=== PATIENT | female | born 1970 | race Caucasian/White ===

== ENCOUNTER 2023-03-20 08:15 | Outpatient (OUT) | payer OTHER, SELFPAY ==
--- NOTE | 2023-03-20 08:29 | MM_ITS ---
Patient: PINKY FUNEZ Exam Date: 03/20/2023 : 1970 Gender:F Ordering : DR ANGEL REVELES D.O. Admission #: [id number] Family : Order #: [id number] CLICK HERE TO VIEW EXAM RADIOLOGY REPORT PROCEDURE: MM TOMOSYNTHESIS SCREENING BI COMPARISON: MG MAMM SCREEN 3D [place] CAD, 05/23/2021. MG MAMM VIKTORIA SCRN W CAD DIG, 07/13/2013. INDICATIONS: Screening Calculator Name NCI Breast Cancer Risk Assessment Tool 5 Year Breast Cancer Risk 0.80% Lifetime Breast Cancer Risk 7.40% Personal Breast Cancer No Personal Ovarian Cancer No Treatments None Family Cancers Grandmother-maternal with uterine cancer at age 86. LOCATION: [facility] BREAST COMPOSITION: Extremely dense, which lowers the sensitivity of mammography. FINDINGS: DIAGNOSTIC CATEGORY 1--NEGATIVE. RIGHT BREAST: No significant suspicious finding. No significant change has occurred. LEFT BREAST: No significant suspicious finding. No significant change has occurred. RECOMMENDATIONS: ROUTINE MAMMOGRAM AND CLINICAL EVALUATION IN 12 MONTHS. PLEASE NOTE: A NORMAL MAMMOGRAM DOES NOT EXCLUDE THE POSSIBILITY OF BREAST CANCER. A CLINICALLY SUSPICIOUS PALPABLE LUMP SHOULD BE BIOPSIED. Dictated by: Neil Piña M.D. on 03/21/2023 at 12:56 Approved by: Neil Piña M.D. on 03/21/2023 at 12:59
[2023-03-20 08:36] LABS: Basophils Absolute Auto 0.1 10^3/uL (0.0-0.1); Basophils Percent Auto 1.3 % (0.2-2.0); Eosinophils Absolute Auto 0.3 10^3/uL (0.0-0.7); Eosinophils Percent Auto 4.4 % (0.9-7.0); Hematocrit 44.6 % (36.0-48.0); Hemoglobin 14.2 g/dL (12.0-16.0); Immature Granulocytes Abs Auto 0.02 10^3/uL (0.00-0.03); Immature Granulocytes Pct Auto 0.3 % (0.0-0.5); Lymphocytes Percent Auto 28.7 % (20.5-60.0); Mean Corpuscular HGB Conc 31.8 g/dL (29.9-35.2); Mean Corpuscular Hemoglobin 28.2 pg (26.7-34.0); Mean Corpuscular Volume 88.7 fL (81.0-99.0); Mean Platelet Volume 10.9 fL (9.5-13.5); Monocytes Absolute Auto 0.5 10^3/uL (0.3-0.8); Monocytes Percent Auto 6.9 % (1.7-12.0); Neutrophils Absolute Auto 4.2 10^3/uL (1.4-6.5); Neutrophils Percent Auto 58.4 % (43.0-75.0); Platelet Count 239 10^3/uL (150-450); Red Blood Count 5.03 10^6/uL (4.20-5.40); Red Cell Distribution Width 12.6 % (11.0-15.0); White Blood Count 7.1 10^3/uL (4.0-11.0)
[2023-03-20 10:42] LABS: Alanine Aminotransferase 18 U/L (14-59); Albumin Level 3.6 g/dL (3.4-5.0); Alkaline Phosphatase 82 U/L (46-116); Anion Gap 8.9; Aspartate Amino Transferase 12 U/L (15-37); BUN Creatinine Ratio 19.1; Bilirubin Total 0.4 mg/dL (0.2-1.0); Carbon Dioxide 30.2 mmol/L (21.0-32.0); Chloride 106 mmol/L (98-107); Cholesterol 194 mg/dL (<=200); Estimated GFR (African America >60 (>=60); Estimated GFR (Non-African Ame >60 (>=60); Globulin 3.5 g/dL; Glucose 98 mg/dL (74-106); HDL Cholesterol 64 mg/dL (40-60); Potassium 4.1 mmol/L (3.5-5.1); Sodium 141 mmol/L (136-145); Total Protein 7.1 g/dL (6.4-8.2); Triglycerides 64 mg/dL (<=150); VLDL CHOLESTEROL 12.8 mg/dL
== END 2023-03-20 08:16 | disposition home or self-care (01) ==
LOC: LAB 08:15
PROVIDERS: PCP Family Medicine; Visit Provider Family Medicine
DX: Z00.00 Encounter for general adult medical examination without abnormal findings (principal); Z12.31 Encounter for screening mammogram for malignant neoplasm of breast; Z80.8 Family history of malignant neoplasm of other organs or systems
CPT/HCPCS: 36415; 77063; 77067; 80053; 80061; 85025

== ENCOUNTER 2023-05-26 13:24 | Emergency (ER) | payer OTHER, SELFPAY ==
[2023-05-26 13:30] VITALS: BP 150/101; PULSE 87; RESP 16; TEMP 36.9; O2SAT 99; BMI 31.6
--- NOTE | 2023-05-26 13:59 | CT_ITS ---
The [address] [address] Patient Name: PINKY FUNEZ MRN: [id number] date: 1970 Sex: F Assigned Patient Location: ER Current Patient Location: Accession/Order Number: [id number] Exam Date: 05/26/2023 14:20 Report Date: 05/26/2023 14:49 At the request of: IVELISSE BARRAGAN Procedure: CT abdomen pelvis w con EXAM: CT scan of the abdomen and pelvis using 99 mL of IV iodinated contrast. Dose reduction technique used: Automated exposure control and/or adjustment of the mA and/or kV according to patient size and/or use of iterative reconstruction technique. REASON FOR EXAM: Abdominal pain, rectal bleeding COMPARISON: None FINDINGS: Wall thickening throughout the transverse and descending colon, most prominently in the distal transverse colon with pericolonic fat stranding. Patent superior mesenteric, celiac arteries and superior mesenteric vein. Hypoenhancing 2.3 x 2.0 cm left hepatic segment 4A lesion. Hysterectomy. Normal appendix. No free fluid in the abdomen or pelvis. No free intraperitoneal air. No dilated or thickened loops of small bowel or colon. No hydronephrosis or obstructing renal or ureteral calculi. Liver, pancreas, spleen, bilateral kidneys, and bilateral adrenal glands are otherwise unremarkable. No lymphadenopathy in the abdomen or pelvis. Remainder unremarkable. CT/CT abdomen pelvis w con IMPRESSION: 1. Findings compatible with colitis. 2. No enhancing hepatic lesion. This is indeterminate and in the setting of colitis a hepatic abscess is a consideration. Correlate with any prior outside imaging or consider further evaluation with ultrasound and/or MRI. Electronically authenticated by: CROW CALDERÓN Date: 05/26/2023 14:49
--- NOTE | 2023-05-26 14:12 | ED_ITS ---
HPI - GI Bleed General Chief complaint: GI Bleed Stated complaint: BLOOD IN STOOL, DIARHEA Time Seen by Provider: 05/26/23 13:58 Source: patient Mode of arrival: walk-in Limitations: no limitations History of Present Illness HPI Narrative: patient is a 52-year-old female presents the emergency department for lower abdominal discomfort and bright red rectal bleeding that began yesterday. She states she has a history of chronic abnormal bowel movements. She states she started having cramping in the low abdomen last night and noticed bright red bleeding with her bowel movements. She does not take blood thinners. She has had no fevers or vomiting. She denies any urinary symptoms. She is scheduled to have a colonoscopy this Friday. no medications prior to arrival Related Data Previous Rx's Medication Instructions Recorded ciprofloxacin HCl 500 mg tablet 500 mg PO Q12H #20 tabs 05/26/23 dicyclomine 20 mg tablet 20 mg PO QID PRN abdominal pain 05/26/23 #12 tabs metronidazole 500 mg tablet 500 mg PO Q12H 10 days #20 tabs 05/26/23 ondansetron 4 mg disintegrating 4 mg PO Q6H PRN nausea and 05/26/23 tablet vomiting #12 tabs Allergies Allergy/AdvReac Type Severity Reaction Status Date / Time Penicillins Allergy Severe Verified 05/26/23 13:30 Sulfa (Sulfonamide Allergy Severe Verified 05/26/23 13:30 Antibiotics) Review of Systems ROS Constitutional Denies: fever or chills Ears, nose, mouth, and throat Denies: throat pain Cardiovascular Denies: chest pain Respiratory Denies: shortness of breath or cough Gastrointestinal Reports: abdominal pain and blood in stool; Denies: nausea or vomiting Genitourinary Denies: painful urination Musculoskeletal Denies: back pain Integumentary/Breast Denies: rash Neurological Denies: headache PFSH PFSH Social History Smoking status: Never smoker Exam Narrative Exam Narrative: Gen.: Awake, alert, in no distress Head: Normocephalic, atraumatic ENT: Moist mucous membranes Respiratory: No respiratory distress Gastrointestinal: Abdomen is soft, nondistended and nontender to palpation Extremities: Moves extremities equally Psych: Normal mood and affect Neuro: No focal neuro deficit Skin: Warm, dry, intact Constitutional Vital Signs, click to edit/add: Last Vital Signs Temp 98.4 F 05/26/23 13:30 Pulse 87 05/26/23 13:30 Resp 16 05/26/23 13:30 BP 150/101 H 05/26/23 13:30 Pulse Ox 99 05/26/23 13:30 O2 Del Method Room Air 05/26/23 13:30 Course Vital Signs Vital signs: Vital Signs Temperature 98.4 F 05/26/23 13:30 Pulse Rate 87 05/26/23 13:30 Respiratory Rate 16 05/26/23 13:30 Blood Pressure 150/101 H 05/26/23 13:30 Pulse Oximetry 99 05/26/23 13:30 Oxygen Delivery Method Room Air 05/26/23 13:30 Temperature 98.4 F 05/26/23 13:30 Pulse Rate 87 05/26/23 13:30 Respiratory Rate 16 05/26/23 13:30 Blood Pressure 150/101 H 05/26/23 13:30 Pulse Oximetry 99 05/26/23 13:30 Oxygen Delivery Method Room Air 05/26/23 13:30 MDM - GI Bleed MDM Narrative Medical decision making narrative: patient declining the need for any pain medication or nausea medication in the Emergency Room. Labs studies show minimal leukocytosis with no bandemia and stable lactic acid. She has a normal hemoglobin. The remainder of her labs are unremarkable and she was sent for CT of the abdomen and pelvis with IV contrast showing any was compatible with colitis. Radiologist also notes a 2 cm nonspecific lesion in the liver, which the radiologist notes could potentially be a liver abscess in the setting of colitis. Patient has no right upper quadrant tenderness. She has had no fevers or vomiting. I discussed the case with Dr. Meza for general surgery. He is in agreement that at this time that the patient can be treated for colitis and reimaged with her general surgeon as she is supposed to have a colonoscopy on Friday, they will likely postpone the procedure, they can reimage the liver lesion. Patient will be started on Cipro, Flagyl, Bentyl, Zofran. She is encouraged to follow clear liquid diet for forty- eight hours and follow-up with the general surgeon in [place] that she is scheduled to see. Return to the Emergency Room if symptoms change or worsen. Patient was reevaluated by attending physician prior to discharge and she was made aware of her CT results and the need for reimaging with either her primary care provider or her general surgeon. She verbalizes understanding. Medical Records Attestation: I reviewed the patient's medical records. Lab Data Attestation: I reviewed the patient's lab results. Labs: Lab Results 05/26/23 Range/Units 14:15 WBC 13.3 H (4.0-11.0) 10^3/uL RBC 5.17 (4.20-5.40) 10^6/uL Hgb 14.9 (12.0-16.0) g/dL Hct 45.8 (36.0-48.0) % MCV 88.6 (81.0-99.0) fL MCH 28.8 (26.7-34.0) pg MCHC 32.5 (29.9-35.2) g/dL RDW 12.9 (11.0-15.0) % Plt Count 271 (150-450) 10^3/uL MPV 10.7 (9.5-13.5) fL Neut % (Auto) 72.3 (43.0-75.0) % Lymph % (Auto) 19.2 L (20.5-60.0) % [place] % (Auto) 6.3 (1.7-12.0) % Eos % (Auto) 1.0 (0.9-7.0) % Baso % (Auto) 0.8 (0.2-2.0) % Neut # (Auto) 9.6 H (1.4-6.5) 10^3/uL Lymph # (Auto) 2.6 (1.2-3.8) 10^3/uL [place] # (Auto) 0.8 (0.3-0.8) 10^3/uL Eos # (Auto) 0.1 (0.0-0.7) 10^3/uL Baso # (Auto) 0.1 (0.0-0.1) 10^3/uL Abs Immat Gran (auto) 0.05 H (0.00-0.03) 10^3/uL Imm/Tot Granulo (auto) 0.4 (0.0-0.5) % PT 9.8 (9.0-11.6) sec INR <0.93 Sodium 140 (136-145) mmol/L Potassium 3.5 (3.5-5.1) mmol/L Chloride 103 (98-107) mmol/L Carbon Dioxide 28.4 (21.0-32.0) mmol/L Anion Gap 12.1 BUN 10.0 (7.0-18.0) mg/dL Creatinine 0.90 (0.55-1.02) mg/dL Est GFR ( Amer) >60 (>=60) Est GFR (Non-Af Amer) >60 (>=60) BUN/Creatinine Ratio 11.1 Glucose 94 (74-106) mg/dL Lactate 0.6 (0.4-2.0) mmol/L Calcium 8.8 (8.5-10.1) mg/dL Total Bilirubin 0.4 (0.2-1.0) mg/dL AST 17 (15-37) U/L ALT 42 (14-59) U/L Alkaline Phosphatase 92 (46-116) U/L Total Protein 7.0 (6.4-8.2) g/dL Albumin 3.4 (3.4-5.0) g/dL Globulin 3.6 g/dL Albumin/Globulin Ratio 0.[address] scan - abdomen: Attestation: I have reviewed the pertinent imaging results. Radiologist's impression: Procedure: CT abdomen pelvis w con EXAM: CT scan of the abdomen and pelvis using 99 mL of IV iodinated contrast. Dose reduction technique used: Automated exposure control and/or adjustment of the mA and/or kV according to patient size and/or use of iterative reconstruction technique. REASON FOR EXAM: Abdominal pain, rectal bleeding COMPARISON: None FINDINGS: Wall thickening throughout the transverse and descending colon, most prominently in the distal transverse colon with pericolonic fat stranding. Patent superior mesenteric, celiac arteries and superior mesenteric vein. Hypoenhancing 2.3 x 2.0 cm left hepatic segment 4A lesion. Hysterectomy. Normal appendix. No free fluid in the abdomen or pelvis. No free intraperitoneal air. No dilated or thickened loops of small bowel or colon. No hydronephrosis or obstructing renal or ureteral calculi. Liver, pancreas, spleen, bilateral kidneys, and bilateral adrenal glands are otherwise unremarkable. No lymphadenopathy in the abdomen or pelvis. Remainder unremarkable. IMPRESSION: 1. Findings compatible with colitis. 2. No enhancing hepatic lesion. This is indeterminate and in the setting of colitis a hepatic abscess is a consideration. Correlate with any prior outside imaging or consider further evaluation with ultrasound and/or MRI. Electronically authenticated by: CROW CALDERÓN Date: 05/26/2023 14:49 Discharge Plan Discharge Chief Complaint: GI Bleed Clinical Impression: Colitis, Rectal bleeding, Abdominal pain Patient Disposition: Home, Self-Care Time of Disposition Decision: 15:23 Condition: Good Prescriptions / Home Meds: New ciprofloxacin HCl 500 mg tablet 500 mg PO Q12H Qty: 20 0RF metronidazole 500 mg tablet 500 mg PO Q12H 10 Days Qty: 20 0RF dicyclomine 20 mg tablet 20 mg PO QID PRN (Reason: abdominal pain) Qty: 12 0RF ondansetron 4 mg tablet,disintegrating 4 mg PO Q6H PRN (Reason: nausea and vomiting) Qty: 12 0RF Instructions: Rectal Bleeding (ED), Abdominal Pain (ED), Colitis (ED) Additional Instructions: Follow up with your surgeon as scheduled Stand Alone Forms: Portal Instructions Referrals: ANGEL REVELES [Primary Care Provider] - 1 week
[2023-05-26 14:30] LABS: Basophils Absolute Auto 0.1 10^3/uL (0.0-0.1); Basophils Percent Auto 0.8 % (0.2-2.0); Eosinophils Absolute Auto 0.1 10^3/uL (0.0-0.7); Hematocrit 45.8 % (36.0-48.0); Hemoglobin 14.9 g/dL (12.0-16.0); Immature Granulocytes Abs Auto 0.05 10^3/uL (0.00-0.03); Immature Granulocytes Pct Auto 0.4 % (0.0-0.5); Lymphocytes Absolute Auto 2.6 10^3/uL (1.2-3.8); Lymphocytes Percent Auto 19.2 % (20.5-60.0); Mean Corpuscular HGB Conc 32.5 g/dL (29.9-35.2); Mean Corpuscular Hemoglobin 28.8 pg (26.7-34.0); Mean Corpuscular Volume 88.6 fL (81.0-99.0); Mean Platelet Volume 10.7 fL (9.5-13.5); Monocytes Absolute Auto 0.8 10^3/uL (0.3-0.8); Monocytes Percent Auto 6.3 % (1.7-12.0); Neutrophils Absolute Auto 9.6 10^3/uL (1.4-6.5); Neutrophils Percent Auto 72.3 % (43.0-75.0); Platelet Count 271 10^3/uL (150-450); Red Blood Count 5.17 10^6/uL (4.20-5.40); Red Cell Distribution Width 12.9 % (11.0-15.0); White Blood Count 13.3 10^3/uL (4.0-11.0)
[2023-05-26 14:44] LABS: Alanine Aminotransferase 42 U/L (14-59); Albumin Globulin Ratio 0.9; Albumin Level 3.4 g/dL (3.4-5.0); Alkaline Phosphatase 92 U/L (46-116); Anion Gap 12.1; Aspartate Amino Transferase 17 U/L (15-37); BUN Creatinine Ratio 11.1; Bilirubin Total 0.4 mg/dL (0.2-1.0); Calcium 8.8 mg/dL (8.5-10.1); Carbon Dioxide 28.4 mmol/L (21.0-32.0); Chloride 103 mmol/L (98-107); Estimated GFR (African America >60 (>=60); Estimated GFR (Non-African Ame >60 (>=60); Globulin 3.6 g/dL; Glucose 94 mg/dL (74-106); Potassium 3.5 mmol/L (3.5-5.1); Sodium 140 mmol/L (136-145)
[2023-05-26 14:46] LABS: Prothrombin Time 9.8 sec (9.0-11.6)
[2023-05-26 14:47] LABS: INR <0.93
[2023-05-26 14:48] LABS: Lactate/Lactic Acid 0.6 mmol/L (0.4-2.0)
[2023-05-26] MEDS: 0.9 % SODIUM CHLORIDE 1,000 ML 999 ML IV (14:56)
== END 2023-05-26 15:34 | disposition home or self-care (01) ==
PROVIDERS: Physician Assistant; Emergency Provider Emergency Medicine; PCP Family Medicine
DX: K52.9 Noninfective gastroenteritis and colitis, unspecified (principal); K62.5 Hemorrhage of anus and rectum; R10.9 Unspecified abdominal pain; K76.9 Liver disease, unspecified
CPT/HCPCS: 36415; 74177; 80053; 83605; 85025; 85610; 99285; Q9967

== ENCOUNTER 2023-10-22 22:50 | Emergency (ER) | payer OTHER, SELFPAY ==
[2023-10-22 22:57] VITALS: BP 152/99; PULSE 85; RESP 18; TEMP 36.4; O2SAT 96; BMI 29.1
--- NOTE | 2023-10-22 23:25 | ED.ABDPAIN1 ---
HPI - Abdominal Pain General Chief Complaint: Abdominal Pain Stated Complaint: Rectal Bleeding Time Seen by Provider: 10/22/23 23:07 Source: patient Mode of arrival: walk-in Limitations: no limitations History of Present Illness HPI narrative: This 52-year-old female with a history of colitis resents for evaluation of abdominal cramping with passage of bloody stool starting after work today. The patient was seen in this department in May and diagnosed with colitis. She states she is having exactly the same symptoms that she was having then. She states that after school work today she had blowout since that time she has had 6 or 7 episodes of dark gelatinous bloody stool with abdominal cramps and chills. She is nauseated but has not vomited. She denies any chest pain or shortness of breath. She did have a colonoscopy in July at [facility] that was essentially normal with a benign polyp and she was told that she could have another colonoscopy in 10 years. She did take a dose of Zofran prior to coming to the hospital that she had left over without significant improvement in her nausea. Related Data Home Medications Medication Instructions Recorded Confirmed levothyroxine 112 mcg tablet 112 mcg PO DAILY 10/22/23 10/22/23 Previous Rx's Medication Instructions Recorded ondansetron 4 mg disintegrating 4 mg PO Q6H PRN nausea and 05/26/23 tablet vomiting #12 tabs Allergies Allergy/AdvReac Type Severity Reaction Status Date / Time Penicillins Allergy Severe Verified 10/22/23 23:03 Sulfa (Sulfonamide Allergy Severe Verified 10/22/23 23:03 Antibiotics) Review of Systems ROS Status of ROS 10 or more systems reviewed and unremarkable except as noted in history and below PFSH PFS Social History Smoking status: Never smoker Exam Narrative Exam Narrative: Nurses note and vital signs reviewed and patient is not hypoxic. General: Alert, nontoxic but uncomfortable appearing female, she prefers to sit in a chair then to light down in the bed due to abdominal discomfort, no respiratory distress, no active vomiting Skin: Warm, dry, no pallor noted. There is no rash noted. Head: Normocephalic, atraumatic Eye: Normal conjunctiva, no drainage, EOMI. PERRL Ears, Nose, Mouth, and Throat: oral mucosa is moist. Nares patent. Mouth without vesicles. Cardiovascular: Regular Rate and Rhythm1 and S2, pulses are brisk and equal bilaterally Respiratory: Patient is in no distress, no accessory muscle use, lungs are clear to auscultation, no wheezing, rales or rhonchi Back: non-tender, no CVA tenderness bilaterally to percussion. 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 Musculoskeletal: The patient has no evidence of calf tenderness, no pitting edema, symmetrical pulses noted bilaterally Neurological: A&O x4, normal speech Psychiatric: Cooperative Constitutional Vital Signs, click to edit/add: Last Vital Signs Temp 97.5 F L 10/22/23 22:57 Pulse 82 10/23/23 02:09 Resp 16 10/23/23 02:09 BP 135/68 10/23/23 02:09 Pulse Ox 99 10/23/23 02:09 O2 Del Method Room Air 10/23/23 02:09 Course Vital Signs Vital signs: Vital Signs Temperature 97.5 F L 10/22/23 22:57 Pulse Rate 85 10/22/23 22:57 Respiratory Rate 18 10/22/23 22:57 Blood Pressure 152/99 H 10/22/23 22:57 Pulse Oximetry 96 10/22/23 22:57 Oxygen Delivery Method Room Air 10/22/23 22:57 Temperature 97.5 F L 10/22/23 22:57 Pulse Rate 82 10/23/23 02:09 Respiratory Rate 16 10/23/23 02:09 Blood Pressure 135/68 10/23/23 02:09 Pulse Oximetry 99 10/23/23 02:09 Oxygen Delivery Method Room Air 10/23/23 02:09 MDM - Abdominal Pain MDM Narrative Medical decision making narrative: 8-year-old female who was diagnosed with colitis last fall and had bloody diarrhea at that time presents for evaluation of recurrent abdominal pain with nausea and passage of mucousy and bloody stool. She had some chills earlier in the evening. She did have a colonoscopy after her diagnosis of colitis last fall. The colonoscopy was unremarkable with the exception of a benign polyp. Vital signs are stable. Her abdomen was diffusely tender. Rectal exam was positive for mucus and trace blood. There was no masses or hemorrhoids appreciated. An IV was placed and she was medicated with IV fluids, Zofran, Bentyl and morphine. Routine labs are reviewed. She has a white count of 15. She has a normal hemoglobin. Electrolytes are normal. Lactic acid is normal. CT scan of the abdomen and pelvis which is included in the body is report shows wall thickening of the splenic flexure and descending colon concerning for colitis. She was medicated with IV Cipro and Flagyl in the emergency department and will be discharged home with prescription for Cipro, Flagyl, Bentyl, Zofran and analgesics. 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 Medical Records Medical records narrative: [place] [address] CT Scan Report Signed Patient: PINKY FUNEZ MR#: [id number] : 1970 Acct:[id number] Age/Sex: 52 / F ADM Date: 10/22/23 Loc: ER Attending Dr: Ordering Physician: Josseline Frank Date of Service: 10/22/23 Procedure(s): CT abdomen pelvis w con Accession Number(s): [id number] cc: ANGEL REVELES [facility] [place] [id number] Patient Name: PINKY FUNEZ MRN: [id number] date: 1970 Sex: F Assigned Patient Location: ER Current Patient Location: ER Accession/Order Number: [id number] Exam Date: 10/22/2023 23:55 Report Date: 10/23/2023 00:32 At the request of: JOSSELINE FRANK Procedure: CT abdomen pelvis w con EXAM: CT abdomen pelvis w con HISTORY: GI bleeding COMPARISON: 05/26/2023 TECHNIQUE: CT of the abdomen and pelvis with intravenous contrast. Dose reduction techniques were achieved by using automated exposure control and/or adjustment of mA and/or kV according to patient size and/or use of iterative reconstruction technique. FINDINGS: TUBES AND IMPLANTS: None. LOWER CHEST: Unremarkable ABDOMEN and PELVIS ABDOMINAL WALL AND SOFT TISSUES: Unremarkable. BONES: No suspicious lesions. Multilevel degenerative changes of the spine. ARTERIES: No aortoiliac aneurysm VEINS: Unremarkable. LYMPH NODES: Unremarkable. PERITONEUM/ RETROPERITONEUM: Unremarkable. BOWEL: No obstruction. There is wall thickening of the splenic flexure and descending colon with surrounding mild inflammatory changes APPENDIX: Not identified. LIVER: There is a 1.5 centimeter hypodense lesion with central hyperdensity at the junction of the right and left lobes, suggestive of a hemangioma. GALLBLADDER: Unremarkable. BILE DUCTS: Not dilated SPLEEN: Unremarkable. PANCREAS: Unremarkable. ADRENALS: Unremarkable. KIDNEYS/ URETERS: Unremarkable. REPRODUCTIVE ORGANS: Uterus is surgically absent. Bilateral ovaries appear grossly unremarkable URINARY BLADDER: Mildly filled CT/CT abdomen pelvis w con IMPRESSION: Wall thickening of the splenic flexure and descending colon concerning for colitis. This may represent infectious or inflammatory etiology with ischemic etiology considered less likely. Electronically authenticated by: YARIEL PETERSEN Date: 10/23/2023 00:32 Lab Data Labs: Lab Results 10/22/23 Range/Units 23:30 WBC 15.1 H (4.0-11.0) 10^3/uL RBC 5.17 (4.20-5.40) 10^6/uL Hgb 14.9 (12.0-16.0) g/dL Hct 46.1 (36.0-48.0) % MCV 89.2 (81.0-99.0) fL MCH 28.8 (26.7-34.0) pg MCHC 32.3 (29.9-35.2) g/dL RDW 12.2 (11.0-15.0) % Plt Count 258 (150-450) 10^3/uL MPV 10.9 (9.5-13.5) fL Neut % (Auto) 84.2 H (43.0-75.0) % Lymph % (Auto) 10.4 L (20.5-60.0) % [place] % (Auto) 4.4 (1.7-12.0) % Eos % (Auto) 0.3 L (0.9-7.0) % Baso % (Auto) 0.4 (0.2-2.0) % Neut # (Auto) 12.7 H (1.4-6.5) 10^3/uL Lymph # (Auto) 1.6 (1.2-3.8) 10^3/uL [place] # (Auto) 0.7 (0.3-0.8) 10^3/uL Eos # (Auto) 0.1 (0.0-0.7) 10^3/uL Baso # (Auto) 0.1 (0.0-0.1) 10^3/uL Abs Immat Gran (auto) 0.04 H (0.00-0.03) 10^3/uL Imm/Tot Granulo (auto) 0.3 (0.0-0.5) % Sodium 143 (136-145) mmol/L Potassium 4.0 (3.5-5.1) mmol/L Chloride 104 (98-107) mmol/L Carbon Dioxide 28.4 (21.0-32.0) mmol/L Anion Gap 14.6 BUN 16.0 (7.0-18.0) mg/dL Creatinine 0.97 (0.55-1.02) mg/dL Est GFR ( Amer) >60 (>=60) Est GFR (Non-Af Amer) >60 (>=60) BUN/Creatinine Ratio 16.5 Glucose 118 H (74-106) mg/dL Lactate 1.2 (0.4-2.0) mmol/L Calcium 9.1 (8.5-10.1) mg/dL Total Bilirubin 0.4 (0.2-1.0) mg/dL AST 18 (15-37) U/L ALT 27 (14-59) U/L Alkaline Phosphatase 100 (46-116) U/L Total Protein 7.7 (6.4-8.2) g/dL Albumin 3.6 (3.4-5.0) g/dL Globulin 4.1 g/dL Albumin/Globulin Ratio 0.9 Lipase 36.0 (16.0-77.0) U/L Discharge Plan Discharge Chief Complaint: Abdominal Pain Clinical Impression: Colitis, Rectal bleeding Patient Disposition: Home, Self-Care Time of Disposition Decision: 00:51 Condition: Good Prescriptions / Home Meds: No Action levothyroxine 112 mcg tablet 112 mcg PO DAILY ondansetron 4 mg tablet,disintegrating 4 mg PO Q6H PRN (Reason: nausea and vomiting) Qty: 12 0RF Instructions: Gastrointestinal Bleeding (ED), Rectal Bleeding (ED), Colitis (ED) Additional Instructions: Antibiotic: Cipro - twice daily for 10 days Antifungal: Flagyl - twice daily for 10 days Zofran every 6 hours as needed for nausea/vomiting [place] every 4-6 hours as needed for pain Bentyl every 8 hours as needed for abdominal cramping. Stand Alone Forms: Portal Instructions Referrals: ANGEL REVELES [Primary Care Provider] - 1 week Discharge Date/Time: 10/23/23 02:23
[2023-10-22 23:47] LABS: Basophils Absolute Auto 0.1 10^3/uL (0.0-0.1); Basophils Percent Auto 0.4 % (0.2-2.0); Eosinophils Absolute Auto 0.1 10^3/uL (0.0-0.7); Eosinophils Percent Auto 0.3 % (0.9-7.0); Hematocrit 46.1 % (36.0-48.0); Hemoglobin 14.9 g/dL (12.0-16.0); Immature Granulocytes Abs Auto 0.04 10^3/uL (0.00-0.03); Immature Granulocytes Pct Auto 0.3 % (0.0-0.5); Lymphocytes Absolute Auto 1.6 10^3/uL (1.2-3.8); Lymphocytes Percent Auto 10.4 % (20.5-60.0); Mean Corpuscular HGB Conc 32.3 g/dL (29.9-35.2); Mean Corpuscular Hemoglobin 28.8 pg (26.7-34.0); Mean Corpuscular Volume 89.2 fL (81.0-99.0); Mean Platelet Volume 10.9 fL (9.5-13.5); Monocytes Absolute Auto 0.7 10^3/uL (0.3-0.8); Monocytes Percent Auto 4.4 % (1.7-12.0); Neutrophils Absolute Auto 12.7 10^3/uL (1.4-6.5); Neutrophils Percent Auto 84.2 % (43.0-75.0); Platelet Count 258 10^3/uL (150-450); Red Blood Count 5.17 10^6/uL (4.20-5.40); Red Cell Distribution Width 12.2 % (11.0-15.0); White Blood Count 15.1 10^3/uL (4.0-11.0)
[2023-10-22] MEDS: 0.9 % SODIUM CHLORIDE 1,000 ML 1000 ML IV (23:48)
[2023-10-22] MEDS: ONDANSETRON PF 4 MG/2 ML VIAL IV (23:48)
[2023-10-22] MEDS: MORPHINE SULFATE 4 MG/ML VIAL IV (23:48)
[2023-10-22] MEDS: DICYCLOMINE HCL 20 MG/2 ML VIAL IM (23:48)
[2023-10-23 00:02] LABS: Alanine Aminotransferase 27 U/L (14-59); Albumin Globulin Ratio 0.9; Albumin Level 3.6 g/dL (3.4-5.0); Alkaline Phosphatase 100 U/L (46-116); Anion Gap 14.6; Aspartate Amino Transferase 18 U/L (15-37); BUN Creatinine Ratio 16.5; Bilirubin Total 0.4 mg/dL (0.2-1.0); Calcium 9.1 mg/dL (8.5-10.1); Carbon Dioxide 28.4 mmol/L (21.0-32.0); Chloride 104 mmol/L (98-107); Estimated GFR (African America >60 (>=60); Estimated GFR (Non-African Ame >60 (>=60); Globulin 4.1 g/dL; Glucose 118 mg/dL (74-106); Sodium 143 mmol/L (136-145); Total Protein 7.7 g/dL (6.4-8.2)
[2023-10-23 00:05] LABS: Lactate/Lactic Acid 1.2 mmol/L (0.4-2.0)
[2023-10-23] MEDS: CIPROFLOXACIN IN 5 % DEXTROSE 400 MG/200 ML PIGGYBACK 200 MG IV (01:04)
[2023-10-23] MEDS: METRONIDAZOLE 250 MG TABLET 500 MG PO (01:04)
[2023-10-23] MEDS: MORPHINE SULFATE 4 MG/ML VIAL IV (02:06)
[2023-10-23 02:09] VITALS: BP 135/68; PULSE 82; RESP 16; O2SAT 99
[2023-10-23] MEDS: HYDROCODONE/ACET 5-325 MG TABLET 2 TAB PO (02:12)
--- NOTE | 2023-10-23 02:21 | PC.NURSE ---
Discussed discharge paperwork with pt. All questions answered. Script and work note sent home with pt. Pt verbalized understanding to follow up with pcp or return to ER if pain is uncontrolled. Pt ambulated off unit to husbands car in stable condition.
== END 2023-10-23 02:23 | disposition home or self-care (01) ==
PROVIDERS: Emergency Provider Emergency Medicine; PCP Family Medicine
DX: K52.9 Noninfective gastroenteritis and colitis, unspecified (principal); K62.5 Hemorrhage of anus and rectum; Z79.890 Hormone replacement therapy
CPT/HCPCS: 36415; 74177; 80053; 83605; 83690; 85025; 87040; 96365; 96372; 96375; 96376; 99284; J0500; J0744; J2270; J2405; Q9967

== ENCOUNTER 2024-03-23 14:17 | Outpatient (OUT) | payer OTHER, SELFPAY ==
--- NOTE | 2024-03-23 14:21 | MM_ITS ---
Patient Name: PINKY FUNEZ MR#: [id number] : 1970 Exam Date: 03/23/2024 Ordering Doctor: DR ANGEL REVELES D.O. RADIOLOGY REPORT PROCEDURE: MM TOMOSYNTHESIS SCREENING BI COMPARISON: MM TOMOSYNTHESIS SCREENING BI, 03/20/2023. MG MAMM SCREEN 3D VIKTORIA CAD, 05/23/2021. INDICATIONS: Screening Calculator Name NCI Breast Cancer Risk Assessment Tool 5 Year Breast Cancer Risk 0.80% Lifetime Breast Cancer Risk 7.20% Personal Breast Cancer No Personal Ovarian Cancer No Treatments None Family Cancers Grandmother-maternal with uterine cancer at age 86. LOCATION: [facility] BREAST COMPOSITION: The breasts are extremely dense, which lowers the sensitivity of mammography. FINDINGS: DIAGNOSTIC CATEGORY 1--NEGATIVE. NO CHANGE FROM COMPARISON ASSESSMENT. Scattered benign-appearing lymph nodes are present. RIGHT BREAST: No significant suspicious finding. LEFT BREAST: No significant suspicious finding. RECOMMENDATIONS: ROUTINE MAMMOGRAM AND CLINICAL EVALUATION IN 12 MONTHS. PLEASE NOTE: A NORMAL MAMMOGRAM DOES NOT EXCLUDE THE POSSIBILITY OF BREAST CANCER. A CLINICALLY SUSPICIOUS PALPABLE LUMP SHOULD BE BIOPSIED. Dictated by: Cong Marie MD on 03/23/2024 at 15:16 Approved by: Cong Marie MD on 03/23/2024 at 15:17
== END 2024-03-23 14:18 | disposition home or self-care (01) ==
LOC: MAMMO 14:17
PROVIDERS: PCP Family Medicine; Visit Provider Family Medicine
DX: Z12.31 Encounter for screening mammogram for malignant neoplasm of breast (principal); Z80.8 Family history of malignant neoplasm of other organs or systems
CPT/HCPCS: 77063; 77067

== ENCOUNTER 2024-08-07 08:12 | Outpatient (OUT) | payer OTHER, SELFPAY ==
--- OUTSIDE RECORDS SUMMARY | 2024-08-07 08:16 | XMS_ITS | CCD ---
Author Organization [facility] Care Team Providers Care Sliver Cutter Name Role Phone Gregory Matos Admitting Unavailable Gregory Matos Attending Unavailable Gregory Matos Referring Unavailable House, [facility] Primary Care Unavailable Gregory Matos Admitting Unavailable Gregory Matos Attending Unavailable Gregory Matos Referring Unavailable House, [facility] Primary Care Unavailable HOUSE, DR ORTIZ Attending Unavailable HOUSE, DR ORTIZ Consulting Unavailable HOUSE, DR ORTIZ Primary Care Unavailable HOUSE, DR ORTIZ Admitting Unavailable Ana 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 Francse Attending Provider Frances Perez Unavailable Frances Perez Attending Unavailable Frances Perez Admitting Unavailable SELF Referring Unavailable RACIEL MENDIETA Attending Unavailable HOUSE, DO CHACORTA Treviño Attending Unavailable HOUSE, CHACORTA P Primary Care Unavailable HOUSE, CHACORTA P Primary Care Unavailable HOUSE, DO CHACORTA P Attending Unavailable HOUSE, DO CHACORTA P Attending Unavailable HOUSE, CHACORTA P Primary Care Unavailable Allergies Allergy Classification Reported Allergen(s) Allergy Type Date of Onset Reaction(s) Facility (2 sources) Penicillin; Translations: [penicillin] Drug Allergy [facility] Repository (1 source) Sulfamethoxazole; Translations: [sulfamethoxazole ] Drug Allergy [facility] Repository (1 source) Penicillins Drug allergy (disorder) 3 [facility] Repository (1 source) Sulfonamides (Antibiotic) Drug allergy (disorder) 3 [facility] Repository (1 source) Penicillin G Drug Allergy Unknown [facility] Other (1 source) Sulf-10 Drug allergy Unknown [facility] Other (1 source) Penicillin Drug Allergy 3 [facility] Repository (1 source) Sulfonamides (Antibiotic) Drug allergy (disorder) 3 [facility] Repository (1 source) sulfADIAZINE; Translations: [SulfADIAZINE Sodium] Drug Allergy [facility] Repository Medications Current Medications Medication Drug Class(es) Dates Sig (Normalized) Sig (Original) levothyroxine (1 source) l-Thyroxine Synthroid Active probiotic (1 source) probiotic Active Problems Problem Classification Problem Date Documented Da te Episodic/Chronic Other connective tissue disease (1 source) Pain in left hand Episodic Other connective tissue disease (1 source) Ganglion, left wrist Episodic Thyroid disorders (4 sources) Hypothyroidism, unspecified; Translations: [HYPOTHYROIDISM UNSPECIFIED] Onset: 12-31-2022 Chronic Unclassified (1 source) Pain in left hand; Translations: [Pain in left hand] Onset: 08-15-2023 Results Test Name Value Interpretation Reference Range Facility Miscellaneouson 04-28-2024 Miscellaneous [id number]#1.0 [facility] Rad - Other Radiology Report on 03-24-2024 Rad - Other Radiology Report [id number]#1.0 [facility] Outside Recordson 03-15-2024 Outside Records [id number]#1. 00[facility] Lab - Other Lab Resultson Lab - Other Lab Results [id number]#1.0 [facility] Outside Recordson 03-09-2024 Outside Records [id number]#1.0 [facility] Outside Records [id number]#[address] [place] [address] Rad - Other Radiology Report on 03-09-2024 Rad - Other Radiology Report [id number]#1.[address] [place] [address] Progress Note - Nurseon 02-07 Progress Note - Nurse Patient presents in office for weight check after first month of phentermine. Patient weighed in at 197.0 with a weight loss of 13.1 pounds. Patient's vitals were taken with BP reading as 122/78, P 106, O2 99%. Patient tolerated medication well and would like to continue with a second month of phentermine. Prescription was proposed to provider for signature. [Electronically Signed on: 04/06/2024 08:48 EDT] Roselyn Jensen [Verified on: 04/06/2024 08:48 EDT] [facility] Office Visit (GASTMN ) PINKY FUNEZ ([id number]) 1970 F Date Time Provider Department 11/11/23 1:30 PM RACIEL MENDIETA GASTJORJE During your visit today, we recorded the following information about you: Temperature Pulse Blood pressure Weight 97 degrees 81/minute 138/68 88.9 kg Height 1.651 m Diallo Gambino MD, PhD 11/11/2023 4:42 PM Signed [facility] Gastroenterology AND Hepatology 11/11/2023 Pinky Funez 52 year old female Referring physician or PCP: SELF No primary care provider on file. Referred by * to the [facility] for opinion regarding * . My final recommendations will be communicated by way of shared Medical Record for internal providers or letter via the [facility] [employer] for external providers. SUBJECTIVE: HPI: Pinky Funez is a 52 year old female with PMHx hysterectomy who is here for two episodes of colitis. Went to the ED for colitis on two separate occasions. 05/26/2023 10/22/2023 In both incidences. She would have abdominal pain, bloody diarrhea. It starts with gas like pain and then would worsen. Brutal and excruciating pain, twisting in nature that does not stop. Primarily in lower abdomen. Pain is followed by explosive watery diarrhea. Pain would continue and then would have red blood, jelly like material for several days. The first time did not need pain meds. Sent on PO Abx (ciprofloxacin) The second time was more severe and had to have IV pain meds and IV Abx and then sent on cipro and flagyl, zofran, norco, bentyl Power chills but no fever and was sweating One correlation she observed, having a Donut from specific bakery. Modusly. Other people shared same Donuts but no one got sick At baseline, she would go for a BM every 3 days, hard stool, no straining. She takes fibers PRN. No concern for dehydration the days before episodes. No family history of colon cancer or IBD Occasional naproxen for headache. From Care everywhere - [facility] 07/18/2023: Findings: A 5 mm polyp was found in the hepatic flexure. The polyp was pedunculated. The polyp was removed with a hot snare. Resection and retrieval were complete. Estimated blood loss was minimal. The exam was otherwise without abnormality. Estimated Blood Loss: Estimated blood loss was minimal. Impression: - One 5 mm polyp at the hepatic flexure, removed with a hot snare. Resected and retrieved. - The examination was otherwise normal. Recommendation: - Await pathology results. Procedure Code(s): --- Professional --- 75751, Colonoscopy, flexible; with removal of tumor(s), polyp(s), or other lesion(s) by snare technique Patient Name:PINKY FUNEZ:1970 (Age: 52)Gender:FTaken:07/18Reported:07/28/20 23Physician(s):Jefferson Peterson MD ([phone])Copy To: Rec. #:[id number]: #[id number] Final Pathologic Diagnosis Hepatic flexure polyp: Hyperplastic polyp fragments Report Electronically Signed Out nsk/07/28/2023Leonela Aly MD Interpretation performed at [facility], [facility], [place] [address], License number: [id number]. Clinical History Screening. Gross Description Received in formalin labeled SAMPSEL, hepatic flexure polyp is a single pedunculated li to reddish-brown polypoid fragment of soft tissue, 0.7 x 0.3 x 0.2 cm. The polyp is inked teal at the probable surgical margin and submitted intact in cassette A. Also received in the container are 3 li strips of soft tissue, ranging from 0.6-1.0 cm in greatest dimension, which are filtered and submitted in cassette B. (2, ns, [id number], m5) [facility] [place]/07/18/2023R Specimen(s) Received Hepatic flexure polyp Fee Codes(s): 1; 96650 Review Of Systems A 14 point ROS is negative except as outlined above. No past medical history on file. No past surgical history on file. Social History Tobacco Use Smoking status: Never Passive exposure: Never Smokeless tobacco: Never Substance Use Topics Alcohol use: Never Drug use: Never levothyroxine (SYNTHROID) 112 mcg tablet Take 1 tablet by mouth every afternoon. ciprofloxacin HCl (CIPRO) 500 mg tablet Take 1 tablet by mouth every 12 hours. (Patient not taking: Reported on 11/11/2023) dicyclomine (BENTYL) 20 mg tablet TAKE 1 TABLET BY MOUTH EVERY 8 HOURS NEEDED FOR ABDOMINAL CRAMPS (Patient not taking: Reported on 11/11/2023) HYDROcodone-acetaminop hen (NORCO) 5-325 mg per tablet Take 1 tablet by mouth. (Patient not taking: Reported on 11/11/2023) metroNIDAZOLE (FLAGYL) 500 mg tablet Take 1 tablet by mouth every 12 hours. (Patient not taking: Reported on 11/11/2023) ondansetron (ZOFRAN) 4 mg tablet Take 4 mg by mouth every 6 hours as needed. (Patient not taking: Reported on 11/11/2023) busPIRone (BUSPAR) 10 mg tablet Take 10 mg by mouth. (Patient not takin (more content not included)... Normal [facility] Outside Recordson 10-27-2023 Outside Records [id number]#1 .00OTGTIFF [facility] XR hand LT min 3V*on 023 XR hand LT min 3V* [facility] [address] [place] [address] XRay Report Signed Patient: Pinky Funez MR#: [id number] : 1970 Acct:[id number] Age/Sex: 52 / F ADM Date: 08/15/23 [facility]: Type: [facility] Attending Dr: Frances LOMELI Copies to: YANI Bobo Ordering Provider: YANI Bobo Date of Service: 08/15/23 XR/XR hand LT min 3V*: LEFT HAND PAIN LEFT HAND - 3 views REASON FOR EXAM: Left hand injury now with pain and lump over third metacarpal area COMPARISON: None FINDINGS: No focal soft tissue abnormality. No acute bony process is seen. No bony erosions are noted. No significant degenerative change. XR/XR hand LT min 3V* IMPRESSION: NO ACUTE BONY PROCESS. Impression dictated by: Reagan Bañuelos Jr., D.O.08/15/2023 2:48 PM Dictation Location: [place] [address] Transcribed By: [facility] 08/15/23 1448 Dictated By: Reagan Bañuelos Jr, DO 08/15/23 1444 Signed By: 08/15/[address] [facility] XR hand LT min 3V* [facility] Other XR hand LT min 3V* [facility] Other XR hand LT min 3V* [address] [place] [address] [facility] Other XR hand LT min 3V* [place] [address] [facility] Other XR hand LT min 3V* XRay Report [facility] Other XR hand LT min 3V* Signed [facility] Other XR hand LT min 3V* Patient: Pinky Fnuez MR#: [id number] [facility] Other XR hand LT min 3V* 014 [facility] Other XR hand LT min 3V* : 1970 Acct:[id number] [facility] Other XR hand LT min 3V* Age/Sex: 52 / F ADM Date: 08/15/23 [facility] Other XR hand LT min 3V* Loc: [facility] Room: Type: [facility] Other XR hand LT min 3V* Attending Dr: Frances LOMELI [facility] Other XR hand LT min 3V* Copies to: YANI Bobo [facility] Other XR hand LT min 3V* Ordering Provider: YANI Bobo [facility] Other XR hand LT min 3V* Date of Service: 08/15/23 [facility] Other XR hand LT min 3V* XR/XR hand LT min 3V*: LEFT HAND PAIN [facility] Other XR hand LT min 3V* LEFT HAND - 3 views [facility] Other XR hand LT min 3V* REASON FOR EXAM: Lef t hand injury now with pain and lump over third metacarpal area [facility] Other XR hand LT min 3V* COMPARISON: None [facility] Other XR hand LT min 3V* FINDINGS: [facility] Other XR hand LT min 3V* No focal soft tissue abnormality. No acute bony process is seen. No bony erosions are noted. No [facility] Other XR hand LT min 3V* significant degenerative change. [facility] Other XR hand LT min 3V* XR/XR hand LT min 3V* [facility] Other XR hand LT min 3V* IMPRESSION: [facility] Other XR hand LT min 3V* NO ACUTE BONY PROCESS. [facility] Other XR hand LT min 3V* Impression dictated by: Reagan Bañuelos Jr., D.O.08/15/2023 2:48 PM [facility] Other XR hand LT min 3V* Dictation Location: [facility]IO-PC-15 [facility] Other XR hand LT min 3V* Transcribed By: [facility] 08/15/23 1448 [facility] Other XR hand LT min 3V* Dictated By: Reagan Bañuelos Jr, DO 08/15/23 1444 [facility] Other XR hand LT min 3V* Signed By: [facility] Other XR hand LT min 3V* 08/15/23 1448 [facility] [employer] Other T4on 12-31-2022 T4 [Mass/Vol] 10.70 ug/dL Normal 4.80-13.90 [facility] Comment on above: Performed By: #### T 4, TSH #### [facility] [address] [place] [address] [address] Veronica Hart TSHon 12-31-2022 TSH 1.619 uIU/mL Normal 0.358-3.740 [facility] Comment on above: Performed By: #### T 4, TSH #### [facility] [address] [address] [address] Veronica Hart Gynecology Office/Clinic Not hilario 06-04-2021 Gynecology Office/Clinic Note Chief Complaint New pt. Establishing care, Annual Exam History of Present Illness Pelvic Pain: No Painful Sex: No Abnormal Vaginal Discharge: No Abnormal Vaginal Bleeding: No Vaginal Dryness: No Vaginal Itch: No Vaginal Burning: No Vaginal Odor: No Hot Flashes: Yes Breast Lump: No Breast Pain: No Menstrual Periods: No Sexually Active: Yes Partners in Last 30 Days: 1 Partners in Last 12 Months: 1 Partners in Your Lifetime: 6 Sexual Orientation: Heterosexual Kinds of Sex: Vaginal, Anal, Oral Forced to Have Sex: No Partner Had More Than 1 Partner: Yes Partner IV Drug Use: No Consistently Use Condoms: No 05/31/21 14:15:00 50 y/o, , , New pt. Establishing care, Last OBGYN appt. was at age 42 when Hysterectomy was performed, Pt. adv. I did just want her to know I have been on this Diindolylmethasone + Bioperine 300mg a day to help with my hormones this last 1.5 months Last pap: H/O Hysterectomy at age 42, Pt. did adv. still have ovaries Mammogram: ? 05/23/21, [facility] per pt. FMH: MGM- Uterine Cancer, diagnosed and at age 86 MGP- Cancer, Unknown origin PCP: Dr. hCacorta Reveles in [place] Pt c/o weight gain despite effort since menopause. Information on Saxenda and Wegovy given. Pt to call if covered by insurance. Review of Systems Head Migraines: Yes Migraines comment: I have them 1-2 times a year per pt. Headaches: No Eyes Corrective lenses: Yes Corrective lenses comment: Cheaters per pt. Blurred vision: No Ears, Nose, Throat Congestion: No Vertigo: No Sore throat: No Nasal drainage: Yes Nasal drainage comment: Allergies per pt. Cardio Respiratory Peripheral edema: No Heart Irregularity: No Chest Pain: No Shortness of Breath: No Gastrointestinal Bloating: No Reflux/heartburn: No Abdominal Pain: No Change in bowel habits: No Urinary Urinary Incontinence: No Urinary frequency: No Nocturia: No Urgency: No Painful urination: No Musculoskeletal Back pain: No Muscle aches: No Joint pain: No Integumentary Lesions: No Moles: No Acne: No Hair changes: No Psycho Social Sleep Problems: No Anxiety: No Suicidal Ideation: No Homicidal Ideation: No Depression: No Hematologic/Lymphatic Lymphadenopathy: No Thromboembolism: No Bruising: No Bleeding tendencies: No Endocrine Abnormal weight gain: Yes Abnormal weight gain comment: I have put on 40 pounds in 2 years since my hormones have been out of whack per pt. Abnormal weight loss: No Fatigue: No Physical Exam Vitals & Measurements T: 35.9 ?C (Tympanic) BP: 128/76 HT: 166 cm WT: 87.8 kg WT: 87.8 kg (Dosing) BMI: 31.86 General: Alert and oriented x 3. Well nourished. No acute distress. HEENT: Normocephalic. Normal hearing. Moist oral mucosa. No scleral icterus. No sinus tenderness. Neck: Supple, non-tender. Normal thyroid. No lymphadenopathy. Lungs: Clear to auscultation and percussion. Non-labored respiration. Heart: Normal rate with regular rhythm. No murmur, gallop or edema. Abdomen: Soft, non-tender, non-distended. Normal bowel sounds and no masses appreciated. Musculoskeletal: Normal range of motion and strength. No tenderness or swelling noted. Skin: Skin is warm, dry and pink. No rashes or lesions. Neurologic: CN II-XII grossly intact. Psychiatric: Cooperative. Appropriate mood and affect. Breast exam: No masses, tenderness, or skin changes. No nipple discharge. External Genitalia: Normal urethral meatus. No lesions. Vulvar skin intact. Genitourinary: Normal vaginal mucosa. No lesions or abnormal discharge. No cystocele or rectocele. Vaginal cuff intact and well supported. Bimanual exam: No adnexal tenderness or masses. Additional Vitals BP Position/Location: Sitting, Right arm Assessment/Plan 1. Encounter for gynecological examination (general) (routine) without abnormal findings Physician Comments 1. Recommend monthly self breast exam and call with any changes. 2. Recommend yearly mammogram starting at age 40 (sooner if family history). 3. Recommend colonoscopy to screen for colon cancer beginning at age 45. Gave option of Cologuard if unwilling to do colonoscopy. 4. Recommend vitamin D 1000-2000IU daily. 5. Recommend calcium either through diet (3 servings of dairy daily) or if not able to get through diet then recommend supplement 1200mg daily in divided doses. 6. Recommend healthy diet. 7. Recommend exercise 30 min 5 days weekly. Ordered: 69328 AMB New Preventative Visit 40-64 years Medical Decision Making Chronic conditions NOT treated during this visit that affected my overall medical decision making: [] Treatment plans discussed but not opted for at this time: [] Prescribed medication that requires intensive monitoring for toxicity: [] I have reviewed the patient?s medication list for medication interactions/contraind ications and/or for upcoming procedures: [yes or no] (more content not included)... Normal [facility] Coding Summary.on 07-24-2018 Coding Summary. CODING DATE: 07/24/2018 [facility] STATUS: Home (Routine DC) PAYOR: Medical Ship[facility] APC DESCRIPTION 5113 Level 3 Musculoskeletal Procedures ADMIT DX: REASON FOR VISIT DX: M67.472 Ganglion, left ankle and foot FINAL DX: PRINCIPAL: M67.472 Ganglion, left ankle and foot SECONDARY: M89.8X7 Other specified disorders of bone, ankle and foot E03.9 Hypothyroidism, unspecified PYMT PROC APC STAT DESCRIPTION DOCTOR NAME DATE 47280 Excision of lesion, Gregory Matos DPM 07/22/2018 tendon, tendon sheath, or capsule (including synovectomy) (eg, cyst or ganglion); foot LT Left side (used to identify procedures performed on the left side of the body) 55862 5113 J1 Excision or curettage of Gregory Matos DPM 07/22/2018 bone cyst or benign tumor, tarsal or metatarsal, except talus or calcaneus; LT Left side (used to identify procedures performed on the left side of the body) 04187 Anesthesia for Butch Rich MD 07/22/2018 procedures on nerves, muscles, tendons, and fascia of lower leg, ankle, and foot; not otherwise specified NOTE: The code number assigned matches the documented diagnosis and / or procedure in the patient's chart. However, the narrative phrase printed from the coding software may appear abbreviated, or result in slightly different terminology. Revised Coded By: Kait Marshall Revised Date Saved: 07/24/2018 03:11 pm [facility] Main OR Intraoperative Recor don 07-23-2018 Main OR Intraoperative Record IntraOp Document Type FT Summary Primary Physician: Gregory Matos DPM Finalized Date/Time: 07/23/18 09:04:06 Pt. Name: PINKY SALINAS /Sex: 1970 Female Med Rec #: [id number] Physician: Gregory Matos DPM Financial #: [id number] Pt. Type: A Room/Bed: [facility] Admit/Disch: 07/22/18 06:15:00 - 07/22/18 12:20:00 Institution: Case Times FT Entry 1 Patient Times In Room 07/22/18 08:20:00 Out Room 07/22/18 09:14:00 Procedure Times Start 07/22/18 08:38:00 Stop 07/22/18 09:10:00 Anesthesia Times Start 07/22/18 08:20:00 Stop 07/22/18 09:14:00 Last Modified By: Rain Rich CST 07/22/18 09:14:13 General Comments: 07/23/18 Chart opened to review and send charges Galen Rich CST Case Attendance FT Entry 1 Entry 2 Entry 3 Case Attendee Alicia Ignacio DPM, Nicholas A Barbee RN, Kimberly Y Role Performed Anesthesiologist Surgeon - Primary Fan Runner - Primary Treating Plant Operator Time In 07/22/18 08:20:00 07/22/18 08:20:00 07/22/18 08:20:00 Time Out 07/22/18 09:14:00 07/22/18 09:14:00 07/22/18 09:14:00 Procedure FOOT EXCISION OF SOFT FOOT EXCISION OF SOFT FOOT EXCISION OF SOFT TISSUE MASS(Left) TISSUE MASS(Left) TISSUE MASS(Left) Comments Dr Rich supervising Last Modified By: Jordy RNSonia RN, Sonia Cross RN 07/22/18 09:14:15 07/22/18 09:14:15 07/22/18 09:14:15 Entry 4 Entry 5 Case Attendee Alejo Pereira RN, CNOR, Heather Collins Role Performed Scrub - Primary INDEPENDENT CROP CONSULTANT Time In 07/22/18 08:20:00 07/22/18 08:20:00 Time Out 07/22/18 09:14:00 07/22/18 09:14:00 Procedure FOOT EXCISION OF SOFT FOOT EXCISION OF SOFT TISSUE MASS(Left) TISSUE MASS(Left) Comments Last Modified By: Sonia Spence RN, RN, Kimberly Y 07/22/18 09:14:15 07/22/18 09:14:15 Perioperative Protocols FT Pre-Care Text: Implements protective measures prior to operative or invasive procedure, confirms identity before the operative or invasive procedure, verifies operative procedure, surgical site, and laterality Entry 1 Procedure(s) FOOT EXCISION OF SOFT Patient Identity Birthday, ID Band TISSUE MASS(Left) Verified (select at Check, Patient least 2): Participation Consents / H and P Anesthesia Consent, Operative Site Present Verified HandP, Surgery/Procedure Marking Verified Consent Surgical Site Yes Laterality Verified Yes Verified Procedure Verified Yes Correct Patient Yes Position Verified Availability Equipment, Medication Prep Dry Yes Verified (If Applicable) PreOp Antibiotic Yes Time Out Alicia Ignacio, Given Participants Gregory Matos DPM, Barbee RN, Kimberly Y, Blank RN, CNOR, Carol, [facility], Heather Bentley Time Out Complete 07/22/18 08:36:00 Outcomes Met? Yes Last Modified By: Sonia Spence RN 07/22/18 08:41:45 Post-Care Text: The patient is free from signs and symptoms of injury caused by extraneous objects Allergy Information FT Pre-Care Text: Verifies allergies Entry 1 Allergies Reviewed? Yes Allergies Reviewed Self/Patient With Outcomes Met? Yes Last Modified By: Sonia Spence RN 07/22/18 08:18:35 Post-Care Text: The patient received appropriate medication(s) safely administered during the perioperative period Surgical Procedures FT Entry 1 Procedure Description Procedure FOOT EXCISION OF SOFT Modifiers Left TISSUE MASS Surgeon Description LEFT FOOT GANGLION CYST AND BONE SPUR EXCISION Primary Procedure Yes Primary Surgeon Gregory Matos DPM Start 07/22/18 08:38:00 Stop 07/22/18 09:10:00 Anesthesia Type General Surgical Service Podiatry Wound Class 1 - Clean Last Modified By: Sonia Spence RN 07/22/18 09:13:00 General Case Data FT Pre-Care Text: Classifies surgical wound, implements aseptic technique, initiates traffic control Entry 1 Case Information OR OR 4 FT Case Level Level 2 Wound Class 1 - Clean Specialty Podiatry ASA Class 2 Preop Diagnosis LEFT FOOT GANGLION CYST Postop Same As Preop Yes AND BONE SPUR Postop Diagnosis LEFT FOOT GANGLION CYST Outcomes Met? Yes AND BONE SPUR Last Modified By: Sonia Spence RN 07/22/18 09:02:49 Post-Care Text: The patient is free from signs and symptoms of infection Skin Assessment (Pre Procedure) FT Pre-Care Text: Implements protective measures to prevent skin/ tissue injury due to thermal or mechanical sources Evaluates for signs and symptoms of physical injury to skin and tissue Entry 1 Skin Integrity Intact, [place], Warm, and Skin Abnormality No Dry Outcomes Met? Yes Last Modified By: Sonia Spence RN 07/22/18 08:41:55 Post-Care Text: The patient is free from signs and symptoms of injury caused by extraneous objects Patient Positioning FT Pre-Care Text: Identifies physical alterations that require additional precautions for procedure-specific positioning, verifies presence of prosthetics or corrective devices, positions the patient, evaluates the patient for signs and symptoms of injury as a result of positioning Entry 1 Procedure FOOT EXCISION OF SOFT Body Position Supine TISSUE MASS(Left) Feet Uncrossed? Yes Left Arm Position Extended on Padded Arm Board Right Arm Position Extended on Padded Arm Left Leg Position Extended Board Right Leg Position Extended Positioning Device Safety Strap, Pillow Under Head Large Press Points Checked Yes By Sonia Spence RN, Blank RN, CNOR, Christopher Medina Nicole M Outcomes Met? Yes Last Modified By: Sonia Spence RN 07/22/18 08:20:20 Post-Care Text: The patient is free from signs and symptoms of injury related to positioning Patient Care Devices FT Pre-Care Text: Implements protective measures to prevent skin/ tissue injury due to thermal or mechanical sources Entry 1 Entry 2 Entry 3 Equipment Type CAUTERY UNIT[F] MISTRAL FORCED AIR MONITOR CHARGE SURGERY WARMING SYSTEM UNIT[F] [F] Equipment Number BOOM 4 M6 4 Equipment Setting 25 cut/25 coag high/43c Outcomes Met? Yes Yes Yes Last Modified By: Jordy RN, SoniaSonia Tejeda RN, RN, Kimberly Y 07/22/18 08:42:29 07/22/18 08:42:29 07/22/18 08:19:25 Entry 4 Equipment Type TOURNIQUET AYLEEN [F] Equipment Number D Equipment Setting Outcomes Met? Yes Last Modified By: Sonia Spence RN 07/22/18 08:42:29 Post-Care Text: The patient is free from signs and symptoms of injury caused by extraneous objects Transport To OR FT Pre-Care Text: Transports according to individual needs. Evaluates for signs and symptoms of skin and tissue injury as a result of transfer or transport Entry 1 Via Cart By Sonia Spence RN Safety Precautions Side Rails Up Outcomes Met? Yes Last Modified By: Sonia Spence RN 07/22/18 08:19:37 Post-Care Text: The patient is free from signs and symptoms of injury related to transfer/transport Cautery FT Pre-Care Text: Implements protective measures to prevent injury due to electrical sources, and evaluates for signs and symptoms of electrical injury Entry 1 ESU Identification ESU Type CAUTERY UNIT[F] Equipment Number boom room 4 ESU Settings Cut 25 Coag 25 ESU Grounding Pad Site Right Thigh Hair Removal Pad No Site Pre Pad Site Clear and Intact Post Pad Site Clear and Intact Condition Condition Grounding Pad Blank RN, CNOR, Carol Placed By Outcomes Met? Yes Last Modified By: Sonia Spence RN 07/22/18 08:43:56 Post-Care Text: The patient if free from signs and symptoms of electrical injury Counts Verification FT Pre-Care Text: Performs required counts Entry 1 Entry 2 Procedure(s) FOOT EXCISION OF SOFT FOOT EXCISION OF SOFT TISSUE MASS(Left) TISSUE MASS(Left) Type Initial Final Items Sponges, Sharps Sponges, Sharps Status Correct Correct Time 07/22/18 08:30:00 07/22/18 09:07:00 By [facility] Log Loader HelperHeather Sanchez Barbee RN, Heather Sanchez Barbee RN, Kimberly Y Kimberly Y Outcomes Met? Yes Yes Last Modified By: Sonia Spence RN, RN, Kimberly Y 07/22/18 08:44:22 07/22/18 09:07:15 Post-Care Text: The patient is free from signs and symptoms of injury caused by extraneous objects Skin Prep FT Pre-Care Text: Performs skin preparations Entry 1 Procedure FOOT EXCISION OF SOFT Prep Area left foot to ankle TISSUE MASS(Left) (tourniquet) Prep Agents Chloraprep/Dry Prior to Draping Hair Removal Methods Not Indicated By Sonia Spence RN Outcomes Met? Yes Last Modified By: Sonia Spence RN 07/22/18 08:44:42 Post-Care Text: The patient is free from signs and symptoms of infection Departure From OR FT Pre-Care Text: Transports according to individual needs. Evaluates for signs and symptoms of skin and tissue injury as a result of transfer or transport. Entry 1 Via Cart Safety Precautions Side Rails Up PostOp Destination PACU Transported By Sonia Spence RN Patient Status Stable Skin. Condition Intact, [place], Warm, and Dry Airway Maintenance Oxygen in Use? Yes Airway Device Simple Mask Flow Rate 8 L Outcomes Met? Yes Last Modified By: Sonia Spence RN 07/22/18 08:45:05 Post-Care Text: The patient is free from signs and symptoms of injury related to transfer/transport General Comments: Report given to PACU Nurse. ZOHRA Soto Dressing/Packing FT Pre-Care Text: Administers care to wound sites Entry 1 Type Dressing Items DRESSING GAUZE 4 X 4 10'S [[id number]][F] Site and Details left foot - xeroform, Outcomes Met? Yes 4x4, abd, kerlix and haseeb Last Modified By: Sonia Spence RN 07/22/18 09:14:09 Post-Care Text: The patient is free from signs and symptoms of infection Medication Administration FT Pre-Care Text: Verifies allergies, administers prescribed medications and solutions, administers prescribed antibiotic therapy and immunizing agents as ordered, evaluates response to medications Administers prescribed medications and solutions Entry 1 Route of Admin Field Expiration Date Yes Verified Ordered By Gregory Matos DPM Transcribed/To Sonia Spence RN Field By Administered By Gregory Matos DPM Outcomes Met? Yes Last Modified By: Sonia Spence RN 07/22/18 08:45:20 Post-Care Text: The patient received appropriate medication(s) safely administered during the perioperative period For OscarRashaad please see scanned medication reconcilliation form for medications used at the field during the procedure. Tourniquet FT Pre-Care Text: Implements protective measures to prevent skin/tissue injury due to mechanical sources Entry 1 Tourniquet Type TOURNIQUET CUFF RED 18 Setting 250 mmHg X 4 [[id number]][F] Equipment Number D Placement Left Ankle Cuff Size 18 Padding Under Cuff Yes Applied Applied By Gregory Matos DPM Skin Assessment Unremarkable Before Inflation Skin Assessment Unremarkable After Inflation Tourniquet Times Inflated 07/22/18 08:37:00 Deflated 07/22/18 09:08:00 Total Time 30 minute(s) Outcomes Met? Yes Last Modified By: Sonia Spence RN 07/22/18 09:08:50 Post-Care Text: The patient is free from signs and symptoms of injury caused by extraneous objects Cultures and Specimens FT Pre-Care Text: Manages specimen handling and disposition Manages culture specimen collection Entry 1 Cultures Ordered No Specimens Ordered Yes Specimen Disposition Designated OR Area Frozen Section Times Outcomes Met? Yes Last Modified By: Sonia Spence RN 07/22/18 08:50:51 Post-Care Text: The patient is free from signs and symptoms of injury caused by extraneous objects The patient is free from signs and symptoms of infection General Comments: Specimen Ordered - Left foot ganglion cyst tissue - taken to designated OR area. ZOHRA Soto Temperature Control Entry 1 Temperature Control BLANKET MISTRAL AIR Quantity 1 Aid TORSO [[id number]][F] Fluid/Jennings Unit Mistral warming system Setting high/43c Body Site Upper anterior torso Last Modified By: Sonia Spence RN 07/22/18 08:46:31 Case Comments Finalized By: Rain Rich CST Document Signatures Signed By: Sonia Spence RN 07/22/18 09:18 Sonia Spence RN 07/22/18 09:14 Rain Rich CST 07/23/18 09:04 [facility] Progress Note-Physicianon Protein mass conc Patient: PINKY SALINAS Age: 47 years Sex: Female : 1970 Associated Diagnoses: None Author: Butch Rcih MD Preoperative Information Anesthesia history: Patient History: No personal or Family history of problems with anesthesia. Re-eval prior to induction: Inital eval reviewed: No significant interval change. Review of Systems Constitutional: Negative. Cardiovascular: Cardiovascular risk stratafacation reviewed, 1 FOS without difficulty, No chest pain. Respiratory: No SOB. Hematology/Lymphatics: Negative. Gastrointestinal: Negative. Musculoskeletal: Negative. Neurologic: Negative. Health Status Allergies: Allergic Reactions (Selected) Severity Not Documented Penicillin- Rash. Sulfamethoxazole- Rash. Current medications: (Selected) Inpatient Medications Ordered Clindamycin 900 mg IVPB: 900 mg = 50 mL, Soln-IV, IV Piggyback, PREOP, Routine, Start date 07/22/18 6:30:00 EST, 50 mL/hr, Infuse over 1 hour(s) Lactated Ringers IV Bela 1000 mL 1,000 mL: 1,000 mL, IV, 150 mL/hr, Routine, Start date 07/22/18 6:30:00 EST, 6.7 hour(s), Total volume (mL): 1,000 Documented Medications Documented levothyroxine 150 mcg (0.15 mg) Tab: 150 microgram = 1 tab(s), Oral, Daily, Thyroid Problem list: All Problems Ganglion cyst / SNOMED CT 0795771214 / Confirmed left foot Hypothyroid / SNOMED CT 72582394 / Confirmed Histories Past Medical History: No active or resolved past medical history items have been selected or recorded. Procedure history: H/O: hysterectomy ([id number]). Social History Social & Psychosocial Habits Alcohol 07/14/2018 Risk Assessment: No Risk Tobacco 07/14/2018 Risk Assessment: No Risk . Physical Examination Pain assessment: Self-reports no pain. Airway: Mallampati classification: II (soft palate, fauces, uvula visible). Distance: Adequate. Mouth: Adequate opening. Neck: Full range of motion. Respiratory: Respirations are non-labored. Cardiovascular: Regular rhythm. Neurologic: Alert, Oriented. Review / Management Results review: No qualifying data available . Plan [place] [employer] (ASA) physical status classification: Class II. Anesthetic Preoperative Plan Anesthesia: General. . Anesthetic plan, risks, benefits, and alternatives discussed with the patient and/or family. Patient verbalized understanding. Pt agrees with anesthetic plan and accepts all risks including but not limited to; Bleeding, infection, nerve injury, dental injury, eye injury, headache, low blood pressure, serious problems with the heart and lungs, allergic reactions, and .. [facility] Comment on above: Result Comment: Elec tronically Signed By: Butch Rich MD\.br\Date and Time Signed: 07/23/18 11:51 EST Protein mass conc Patient: PINKY SALINAS Age: 47 years Sex: Female : 1970 Associated Diagnoses: None Author: Butch Rich MD Postoperative Information Post Operative Note: Post Anesthesia Care Unit. Anesthetic utilized: General. Health Status Allergies: Allergic Reactions (All) Severity Not Documented Penicillin- Rash. Sulfamethoxazole- Rash. Problem list: All Problems Ganglion cyst / SNOMED CT 2990496797 / Confirmed left foot Hypothyroid / SNOMED CT 89118399 / Confirmed Physical Examination Intake and Output adequate hydration Vital Signs 07/22/2018 09:20 EST Heart Rate Monitored 60 bpm Respiratory Rate Monitored 10.0 br/min Systolic Blood Pressure 89 mmHg LOW Diastolic Blood Pressure 47 mmHg LOW SpO2 99 % 07/22/2018 09:14 EST Temperature Temporal Artery 36.1 DegC LOW Heart Rate Monitored 66 bpm Respiratory Rate Monitored 16.0 br/min Systolic Blood Pressure 85 mmHg LOW Diastolic Blood Pressure 49 mmHg LOW SpO2 97 % Pain assessment: Self-reports no pain. General: Alert and oriented, No acute distress. HENT: Oral mucosa is moist, dentition unchanged. Respiratory: Respirations: Are within normal limits. Pattern: Regular. Cardiovascular: Normal rate. Neurologic: Alert, Oriented. Review / Management Lines and Tubes: Peripheral catheter. ECG interpretation: Within normal limits. Condition: Stable. Assessment Anesthetic outcome No anesthetic complications noted. Adequate pain relief. No Complaint of nausea and vomiting. Plan Transfer/ Discharge: Patient can be discharged from PACU when criteria met, Patient can be discharged from anesthesia care. Condition stable. [facility] Comment on above: Result Comment: Elec tronically Signed By: Butch Rich MD\.br\Date and Time Signed: 07/23/18 11:47 EST XR Foot 3+ Views Lefton 07-09 XR Foot 3+ Views Left Exam Date/Time: 07/22/2018 09:55 EST Reason for Exam: Postoperative;Other (please specify) Report IMPRESSION: UNREMARKABLE POSTOP FILMS OF THE LEFT FOOT. EXAM: XR Foot 3+ Views Left DATE: 07/22/2018 9:33 AM INDICATION: Acute left foot pain Other (please specify) COMPARISON: None available. FINDINGS: There is no acute fracture or dislocation or other bone abnormality. FINAL REPORT Dictated: 07/22/2018 2:50 pm Tonio Church MD Signed (Electronic Signature): 07/23/2018 11:10 am Signed by: Tonio Church MD Transcribed by: [email or web address] Technologist: GRIFFIN [facility] Inpatient Patient Summaryon 07-22-2018 Inpatient Patient Summary [facility] Clinical Discharge Instructions PERSON INFORMATION Name: PINKY SALINAS PHYSICIANS Admitting Physician: Gregory Matos DPM Attending Physician: Gregory Matos DPM PCP: Chacorta Reveles DO Discharge Diagnosis: Comment: PATIENT EDUCATION INFORMATION Instructions: Carlo - Post Operative Instructions (Custom) (Custom) Medication Leaflets: Follow up: MEDICATION LIST Comment: [facility] Main OR PACU I Recordon 07-09 Main OR PACU I Record PACU Phase I Document Type FT Summary Primary Physician: Gregory Matos DPM Finalized Date/Time: 07/22/18 09:53:32 Pt. Name: PINKY SALINAS /Sex: 1970 Female Med Rec #: [id number] Physician: Gregory Matos DPM Financial #: [id number] Pt. Type: A Room/Bed: 11/06 Admit/Disch: 07/22/18 06:15:57 - Institution: Case Times PACU I FT Pre-Care Text: Identifies barriers to communication and implements measures to provide psychological support Develops individualized plan of care, and ensures continuity of care Maintains patient's dignity and privacy, and maintains patient confidentiality Identifies and reports philosophical, cultural, and spiritual beliefs and values Identifies individual values and wishes concerning care Implements aseptic technique, and administers prescribed antibiotic therapy and immunizing agents as ordered Evaluates postoperative tissue perfusion Implements thermoregulation measures, and monitors body temperature Evaluates postoperative respiratory status Evaluates postoperative cardiac status Evaluates postoperative neurological status Assesses pain control, collaborated in initiating patient-controlled analgesia and implements alternative methods of pain control Verifies allergies, administers prescribed medications and solutions, evaluates response to medications Entry 1 In PACU I 07/22/18 09:14:00 Discharge from PACU 07/22/18 09:44:00 I Outcomes Met? Yes Last Modified By: Larissa Barber RN 07/22/18 09:53:19 Post-Care Text: The patient demonstrates knowledge of the expected response to the operative or invasive procedure The patient's care is consistent with the individualized perioperative plan of care The patient's right to privacy is maintained The patient's value system, lifestyle, ethnicity, and culture are considered, respected, and incorporated into the perioperative plan of care The patient participates in decisions affecting his or her perioperative plan of care The patient is free from signs and symptoms of infection The patient has wound/tissue perfusion consistent with or improved from baseline levels established preoperatively The patient is at or returning to normothermia at the conclusion of the immediate postoperative period The patient's respiratory function is consistent with or improved from baseline levels established preoperatively The patient's cardiovascular status is consistent with or improved from baseline levels established preoperatively The patient's cardiovascular status is consistent with or improved from baseline levels established preoperatively The patient demonstrates and/or reports adequate pain control throughout the perioperative period The patient received appropriate medication(s), safely administered during the perioperative period Acuity Level PACU I FT Entry 1 Start Time 07/22/18 09:14:00 Stop Time 07/22/18 09:44:00 Acuity Level Acuity Level I Last Modified By: Larissa Barber RN 07/22/18 09:53:30 Finalized By: Larissa Barber RN Document Signatures Signed By: Larissa Barber RN 07/22/18 09:53 [facility] Main OR PACU II Recordon Main OR PACU II Record PACU Phase II Document Type FT Summary Primary Physician: Gregory Matos DPM Finalized Date/Time: 07/22/18 15:13:22 Pt. Name: PINKY SALINAS/Sex: 1970 Female Med Rec #: [id number] Physician: Gregory Matos DPM Financial #: [id number] Pt. Type: A Room/Bed: [place] [address] Admit/Disch: 07/22/18 06:15:57 - Institution: Case Times PACU II FT Pre-Care Text: Identifies barriers to communication and implements measures to provide psychological support and determines knowledge level Develops individualized plan of care, and ensures continuity of care Maintains patient's dignity and privacy, and maintains patient confidentiality Identifies and reports philosophical, cultural, and spiritual beliefs and values Identifies individual values and wishes concerning care administers prescribed antibiotic therapy and immunizing agents as ordered, Evaluates postoperative tissue perfusion Implements thermoregulation measures, and monitors body temperature Evaluates postoperative respiratory status Evaluates postoperative cardiac status Evaluates postoperative neurological status Assesses pain control, collaborated in initiating patient-controlled analgesia and implements alternative methods of pain control Verifies allergies, administers prescribed medications and solutions, evaluates response to medications Entry 1 In PACU II 07/22/18 09:45:00 Discharge from PACU 07/22/18 12:20:00 II Outcomes Met? Yes Last Modified By: Yris Hendrickson LPN 07/22/18 15:13:20 Post-Care Text: The patient demonstrates knowledge of the expected response to the operative or invasive procedure The patient's care is consistent with the individualized perioperative plan of care The patient's right to privacy is maintained The patient's value system, lifestyle, ethnicity, and culture are considered, respected, and incorporated into the perioperative plan of care The patient participates in decisions affecting his or her perioperative plan of care. The patient is free from signs and symptoms of infection The patient has wound/tissue perfusion consistent with or improved from baseline levels established preoperatively The patient is at or returning to normothermia at the conclusion of the immediate postoperative period The patient's respiratory function is consistent with or improved from baseline levels established preoperatively The patient's cardiovascular status is consistent with or improved from baseline levels established preoperatively The patient's neurological status is consistent with or improved from baseline levels established preoperatively The patient demonstrates and/or reports adequate pain control throughout the perioperative period The patient received appropriate medication(s), safely administered during the perioperative period Finalized By: Yris Hendrickson LPN Document Signatures Signed By: Yris Hendrickson LPN 07/22/18 15:13 [facility] Main OR Preoperative Recordo n 07-22-2018 Main OR Preoperative Record PreOp Document Type FT Summary Primary Physician: Gregory Matos DPM Finalized Date/Time: 07/22/18 08:39:16 Pt. Name: PINKY SALINAS.O.B./Sex: 1970 Female Med Rec #: [id number] Physician: Gregory Matos DPM Financial #: [id number] Pt. Type: A Room/Bed: 11/06 Admit/Disch: 07/22/18 06:15:57 - Institution: Case Times PreOp FT Pre-Care Text: Verifies consent for planned procedure, identifies individual values and wishes concerning care, includes family members in perioperative teaching Entry 1 Patient Times. In Pre Surgery 07/22/18 06:00:00 Out Pre Surgery 07/22/18 08:18:00 Outcomes Met? Yes Last Modified By: Sonia Spence RN 07/22/18 08:39:13 Post-Care Text: The patient participates in decisions affecting his or her perioperative plan of care Finalized By: Sonia Spence RN Document Signatures Signed By: Sonia Spence RN 07/22/18 08:39 [facility] Operative Reporton 8 Operative Report Date of Surgery: 07/22/2018 SURGEON: Gregory Matos D.P.M. PREOPERATIVE DIAGNOSIS: Left foot ganglion cyst with mid-foot exostosis POSTOPERATIVE DIAGNOSIS: Left foot ganglion cyst with mid-foot exostosis OPERATION: Excision of left foot ganglion cyst tissue with left mid-foot exostectomy PATHOLOGY: Ruptured ganglion cyst tissue, left foot ANESTHESIA: General HEMOSTASIS: 250 mm. of Hg. left ankle tourniquet, for 30 minutes ESTIMATED BLOOD LOSS: None MATERIALS: 4-0 Nylon and 4-0 Vicryl INJECTABLES: Kenalog 40, 1 cc., and 3 cc. of 0.5% Sensorcaine plain PROCEDURE AND DETAIL: The patient was brought into the Operating Room and placed on the Operating Room table in the supine position. An ankle tourniquet was then placed around the patient's left ankle. Following I.V. sedation the foot was scrubbed, prepped and draped in the usual sterile manner. An Esmarch bandage was then utilized to exsanguinate the patient's left foot. The tourniquet was inflated to 250 mm. of Hg. for a total of 30 minutes. Attention was then directed to the dorsal first metatarsal cuneiform joint region, where a dorsal linear incision was made over the extensor tendon. The incision was deepened through the subcutaneous tissue using sharp and blunt dissection with care being taken to identify and retract all vital neurovascular structures. All bleeders were ligated and cauterized as necessary. The incision then continued to the level of the first metatarsal cuneiform joint, where a small cystic fluid-filled mass was discovered, however, ruptured, and it was removed in total and sent to Pathology for evaluation and diagnosis. The dorsal aspect of the first metatarsal cuneiform joint was also noted to have a bony type exostosis and notable as well but the dorsal cutaneous nerve was approximate to this region via dissection. Therefore a rongeur and rasp were utilized to smooth the exostotic region of bone, exostosis removed in total, and the wound was then flushed with copious amounts of sterile Normal Saline. The subcuticular tissue were reapproximated and coapted utilizing 4-0 Vicryl, and the skin was reapproximated and coapted with 4-0 Nylon in a horizontal mattress suture technique. Following the completion of the procedure a total of 1 cc of Kenalog 40 steroid was injected into the first metatarsal cuneiform joint in the area of the ganglion cyst, and a total of 3 cc. of 0.5% Sensorcaine plain was injected to the postoperative site. The tourniquet was deflated with prompt hyperemic response to the left foot. A sterile compressive dressing consisting of Xeroform, 4 x 4's, abdominal pad, Kerlix and Haseeb wrap was applied. The patient tolerated the anesthetic and the procedure well and left the Operating Room for recovery with vital signs stable and vascular status intact in digits one through five of the left foot. After a period of postoperative monitoring the patient will be discharged home on the following oral and written postoperative instructions: 1. Keep dressing dry and intact. 2. The patient may be partial weight bearing on the left foot. 3. The patient was given Dr. Matos's postoperative care sheet including office and hospital number if any problems should arise. Otherwise she will return to the Clinic in one week for her first postoperative visit. Gregory Matos D.P.M. aek Dictated: 07/22/2018 #[id number] Typed: 07/22/2018 #[id number] cc: Gregory Matos D.P.M. [facility] Comment on above: Result Comment: Elec tronically Signed By: Carlo GOETZ, Gregory Gomez\.br\Date and Time Signed: 07/22/18 10:03 EST Patient Education - Texton 1 09-21-2017 Patient Education - Text [place], [place] Gregory Matos DPM, FACFAS POST OPERATIVE INSTRUCTIONS Keep bandage clean and dry and DO NOT REMOVE Keep foot elevated on blue foam pillow Apply ice to top of ankle, one hour on one hour off, until first office visit Walk only in surgical shoes Take pain medications as directed Do not be alarmed if you notice slight bleeding on the bandage, this is normal Resume regular diet. Call the office if you develop: persistent bleeding temperature above 100 degrees persistent vomiting calf pain or shortness of breath redness or pus at operative site Call the office tomorrow for 1st post-operative dressing change appointment. If you have any problems or questions, feel free to call the doctor at: [phone] or [phone] Matos paged. Patient signature Date Dr. Gregory Matos DPM, FACFAS Date Revised: 10-16 [facility] Progress Note-Physicianon Protein mass conc Patient: PINKY SALINAS Age: 47 years Sex: Female : 1970 Associated Diagnoses: None Author: Gregory Matos DPM Postoperative Information Procedure: left foot ganglion excision with left midfoot exostectomy Date/ Time: 07/22/18 09:13:00 Preoperative Diagnosis: bridger. Performed by: Gregory Matos DPM Findings: ruptured ganglion cyst to left first metatarsal cuneiform joint. Specimens Removed: ganglion cyst left foot. Estimated Blood Loss: 0 ml. Medications: 1cc kenalog 40. Complications: None. Anesthesia type: General. Normal [facility] Comment on above: Result Comment: Elec tronically Signed By: Gregory Matos DPM\.br\Date and Time Signed: 07/22/18 09:15 EST Coding Summary.on 07-17-2018 Coding Summary. CODING DATE: 07/17/2018 FINAL [facility] STATUS: Home (Routine DC) PAYOR: Medical Shipman ADMIT DX: REASON FOR VISIT DX: Z01.818 Encounter for other preprocedural examination FINAL DX: PRINCIPAL: Z01.818 Encounter for other preprocedural examination SECONDARY: PROCEDURES DOCTOR NAME DATE NOTE: The code number assigned matches the documented diagnosis and / or procedure in the patient's chart. However, the narrative phrase printed from the coding software may appear abbreviated, or result in slightly different terminology. Coded By: Sultana Garber CphT Date Saved: 07/17/2018 01:14 pm Normal [facility] BUNon 07-14-2018 Urea nitrogen mass conc 17 mg/dL Normal 5-21 [facility] Comment on above: Performed By: #### 2 858519, 2086401, 3391908, 56220754, 2587928 #### [facility] [address] [place] [address] CBC w/Indiceson 07-14-2018 Erythrocyte distribution width Ratio (RBC) 12.9 % Normal 10.9-14.2 [facility] Comment on above: Performed By: #### 2 340271, 5387838, 5306165, 64146977, 4313336 #### [facility] [address] [place] [address] Hematocrit Volume Fraction (Bld) 43.0 % Normal 34.0-46.0 [facility] Comment on above: Performed By: #### 2 235109, 5876631, 4340771, 91969715, 1052557 #### [facility] [address] [place] [address] Hemoglobin mass conc (Bld) 14.3 g/dL Normal 12.0-16.0 [facility] Comment on above: Performed By: #### 2 513391, 9722602, 5806735, 59018510, 6893899 #### [facility] [address] [place] [address] MCH Entitic mass (RBC) 29.7 pg Normal 27.0-34.0 [facility] Comment on above: Performed By: #### 2 192463, 1759721, 2551960, 98716543, 3720053 #### [facility] [address] [place] [address] MCHC mass conc (RBC) 33.3 g/dL Normal 31.4-39.3 [facility] Comment on above: Performed By: #### 2 166793, 4326898, 8344048, 55075690, 9650915 #### [facility] [address] [place], [place] [id number] MCV Entitic volume (RBC) 89.3 fL Normal 80.0-100.0 [facility] Comment on above: Performed By: #### 2 947111, 2944991, 0537244, 37129639, 6064938 #### [facility] [address] [place] [address] Platelet mean volume Entitic volume (Bld) 10.7 fL Normal 6.4-10.8 [facility] Comment on above: Performed By: #### 2 001863, 7997875, 6902329, 19002553, 8876434 #### [facility] [address] [place] [address] Platelets #/vol (Bld) 216.0 E9/L Normal 150.0-500.0 [facility] Comment on above: Performed By: #### 2 003948, 9967966, 4728676, 66624500, 0692406 #### [facility] [address] [place] [address] RBC #/vol (Bld) 4.8 E12/L Normal 4.3-5.9 [facility] Comment on above: Performed By: #### 2 795489, 1420820, 2906785, 97671015, 2509859 #### [facility] [address] [place] [address] WBC corrected for nucl RBC Auto #/vol (Bld) 7.3 E9/L Normal 4.0-11.0 [facility] Comment on above: Performed By: #### 2 294801, 6011426, 0012730, 95676244, 6633254 #### [facility] [address] [place] [address] Creatinineon 07-14-2018 Creatinine mass conc 0.7 mg/dL Normal 0.5-1.3 [facility] Comment on above: Performed By: #### 2 955709, 2536198, 6791158, 68244723, 3598193 #### [facility] [address] [place] [address] Lyteson 07-14-2018 Anion gap molar conc 9 mmol/L Normal 6-16 [facility] Comment on above: Performed By: #### 2 129725, 2006556, 6672843, 74157800, 8520244 #### [facility] [address] [place] [address] Chloride molar conc 102 mmol/L Normal 101-111 [facility] Comment on above: Performed By: #### 2 860996, 8121578, 7973392, 63427431, 7135413 #### [facility] [address] [place] [address] CO2 molar conc 27 mmol/L Normal 21-31 [facility] Comment on above: Performed By: #### 2 244923, 8736494, 7681775, 44926669, 3169182 #### [facility] [address] [place] [address] Potassium molar conc 4.0 mmol/L Normal 3.5-5.3 [facility] Comment on above: Performed By: #### 2 364141, 8667068, 4767384, 32029557, 1224086 #### [facility] [address] [place] [address] Sodium molar conc 134 mmol/L Low 135-145 [facility] Comment on above: Performed By: #### 2 452952, 7543938, 3144587, 73061558, 6680575 #### [facility] [address] [place] [address] eGFRon 07-14-2018 GFR/1.73 sq M predicted among blacks MDRD vol rate/area (S/P/Bld) mL/min/{1.73_m2} Normal >=59 [facility] Comment on above: Order Comment: Order added by Discern Expert. Result Comment: eGFR is race adjusted. AA=. Performed By: #### 2 099289, 3973321, 0058526, 19862158, 4905583 #### [facility] [address] [place] [address] GFR/1.73 sq M predicted among non-blacks MDRD vol rate/area (S/P/Bld) mL/min/{1.73_m2} Normal >=59 [facility] Comment on above: Order Comment: Order added by Discern Expert. Result Comment: Director Of Individual Giving wilfrido kidney disease could be indicated at eGFR's of less than 60 mL/min/1.73m2. Kidney failure is indicated at less than 15 mL/min/1.73m2. Performed By: #### 2 809012, 4304939, 7046411, 02374222, 3759190 #### [facility] [address] [place] [address] Vital Signs Date Time Vital Sign Value Performing Clinician Facility 08-15-2023 13:35-0500 Body height 165.1 cm Frances Perez Other [facility] Other 08-15-2023 13:35-0500 Body mass index (BMI) [Ratio] 32.58 kg/m2 Frances Metzmond Other [facility] Other 08-15-2023 13:35-0500 Body temperature 98.3 [degF] Frances Metzmond Other [facility] Other 08-15-2023 13:35-0500 Body weight 88.81 kg Frances Metzmond Other [facility] Other 08-15-2023 13:35-0500 Diastolic blood pressure 85 mm[Hg] Frances Metzmond Other [facility] Other 08-15-2023 13:35-0500 Respiratory rate 18 /min Frances Metzmond Other [facility] Other 08-15-2023 13:35-0500 SaO2% (BldA) [Mass fraction] 99 % Frances Metzmond Other [facility] Other 08-15-2023 13:35-0500 Systolic blood pressure 144 mm[Hg] Frances Metzmond Other [facility] Other Encounters Encounter Date Encounter Type Care Provider Facility Start: 06-02-2024 End: 06-02-2024 ambulatory [facility] Facility:[facility] Start: 03-04-2024 End: 03-04-2024 ambulatory DO [facility] Facility:[facility] Start: 11-11-2023 End: 11-11-2023 ambulatory SELF Facility:[facility] Start: 10-27-2023 End: 10-27-2023 ambulatory DO [facility] P [facility]SE Facility:[facility] Start: 08-15-2023 End: 08-15-2023 ambulatory Frances Perez Facility:[facility] Start: 08-15-2023 End: 08-15-2023 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 Frances Perez Work Phone: [facility] Work Phone: Start: 08-15-2023 End: 08-15-2023 ambulatory Frances Perez Other [facility] Other Start: 08-15-2023 Office outpatient vi sit 15 minutes Frances Ana [facility] Start: 12-31-2022 End: 01-01-[address] CHACORTA REVELES Facility: Start: 07-22-2018 End: 07-22-2018 Patient encounter procedure Gregory Matos Facility:[facility] Start: 07-14-2018 End: 07-15-2018 Patient encounter procedure Gregory Matos Facility:[facility] Procedures Date Procedure Procedure Detail Performing Clinician Start: 08-15-2023 Plain X-ray of left hand 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 Frances Perez Work Phone: Payers Date Payer Category Payer Self-pay 2018 Unknown [id number] 1970 Unknown [id number] 2.16.84 [id number] 1970 Unknown [id number] 2.16.84 [id number] 1972 Unknown [id number] 2.16.84 [id number] 1972 Unknown [id number] 2.16.8 [id number] 1972 Unknown [id number] 2.16.8 [id number] 1972 Unknown [id number] 2.16.8 [id number] 1959 Unknown [id number] Unknown Bhargavi BC/BS [id number] Unknown [id number] 2.16.8 [id number] Social History Date Type Detail Facility Tobacco smoking status NHIS Unknown if ever smoked [facility] Other Start: 1970 Sex Assigned At Female F [facility] Sex Assigned At Sex Assigned At Bir th [facility] Other Progress note 11-11-2023 Note Date & Type Note Facility 11-11-2023 Note HNO ID: [id number] Author: DIALLO GAMBINO MD, PhD Service: ? Author Type: Physician Type: Progress Notes Filed: 11/11/2023 16:42 Note Text: [facility] Gastroenterology AND Hepatology 11/11/2023 Pinky Funez 52 year old female Referring physician or PCP: SELF No primary care provider on file. Referred by * to the [facility] for opinion regarding * . My final recommendations will be communicated by way of shared Medical Record for internal providers or letter via the [facility] [employer] for external providers. SUBJECTIVE: HPI: Pinky Funez is a 52 year old female with PMHx hysterectomy who is here for two episodes of colitis. Went to the ED for colitis on two separate occasions. 05/26/2023 10/22/2023 In both incidences. She would have abdominal pain, bloody diarrhea. It starts with gas like pain and then would worsen. Brutal and excruciating pain, twisting in nature that does not stop. Primarily in lower abdomen. Pain is followed by explosive watery diarrhea. Pain would continue and then would have red blood, jelly like material for several days. The first time did not need pain meds. Sent on PO Abx (ciprofloxacin) The second time was more severe and had to have IV pain meds and IV Abx and then sent on cipro and flagyl, zofran, norco, bentyl Power chills but no fever and was sweating One correlation she observed, having a Donut from specific bakery. Cream[employer]. Other people shared same Donuts but no one got sick At baseline, she would go for a BM every 3 days, hard stool, no straining. She takes fibers PRN. No concern for dehydration the days before episodes. No family history of colon cancer or IBD Occasional naproxen for headache. From Care [facility] - [facility] Colonoscopy 07/18/2023: Findings: A 5 mm polyp was found in the hepatic flexure. The polyp was pedunculated. The polyp was removed with a hot snare. Resection and retrieval were complete. Estimated blood loss was minimal. The exam was otherwise without abnormality. Estimated Blood Loss: Estimated blood loss was minimal. Impression: - One 5 mm polyp at the hepatic flexure, removed with a hot snare. Resected and retrieved. - The examination was otherwise normal. Recommendation: - Await pathology results. Procedure Code(s): --- Professional --- 71562, Colonoscopy, flexible; with removal of tumor(s), polyp(s), or other lesion(s) by snare technique Patient Name:PINKY FUNEZ:1970 (Age: 52)Gender:FTaken:07/18/2023Reported:07/28hysician(s):Samantha Peterson MD ([phone])Copy To: Rec. #:[id number]: #[id number] Final Pathologic Diagnosis Hepatic flexure polyp: Hyperplastic polyp fragments Report Electronically Signed Out nsk/07/28/2023Leonela Aly MD Interpretation performed at [facility], [address] [place] [address], License number: [id number]. Clinical History Screening. Gross Description Received in formalin labeled ARMIN hepatic flexure polyp is a single pedunculated li to reddish-brown polypoid fragment of soft tissue, 0.7 x 0.3 x 0.2 cm. The polyp is inked teal at the probable surgical margin and submitted intact in cassette A. Also received in the container are 3 li strips of soft tissue, ranging from 0.6-1.0 cm in greatest dimension, which are filtered and submitted in cassette B. (2, ns, [id number], m5) MG mjg/3GR Specimen(s) Received Hepatic flexure polyp Fee Codes(s): 1; 88672 Review Of Systems A 14 point ROS is negative except as outlined above. No past medical history on file. No past surgical history on file. Social History Tobacco Use Smoking status: Never Passive exposure: Never Smokeless tobacco: Never Substance Use Topics Alcohol use: Never Drug use: Never levothyroxine (SYNTHROID) 112 mcg tablet Take 1 tablet by mouth every afternoon. ciprofloxacin HCl (CIPRO) 500 mg tablet Take 1 tablet by mouth every 12 hours. (Patient not taking: Reported on 11/11/2023) dicyclomine (BENTYL) 20 mg tablet TAKE 1 TABLET BY MOUTH EVERY 8 HOURS NEEDED FOR ABDOMINAL CRAMPS (Patient not taking: Reported on 11/11/2023) HYDROcodone-acetaminophen (NORCO) 5-325 mg per tablet Take 1 tablet by mouth. (Patient not taking: Reported on 11/11/2023) metroNIDAZOLE (FLAGYL) 500 mg tablet Take 1 tablet by mouth every 12 hours. (Patient not taking: Reported on 11/11/2023) ondansetron (ZOFRAN) 4 mg tablet Take 4 mg by mouth every 6 hours as needed. (Patient not taking: Reported on 11/11/2023) busPIRone (BUSPAR) 10 mg tablet Take 10 mg by mouth. (Patient not taking: Reported on 11/11/2023) ALLERGIES Allergen Reactions Penicillins Rash Sulfa (Sulfonamide * Rash Bad rash OBJECTIVE: BP 138/68 (BP Site: Left Arm, BP Position: Sitting, BP Cuff Size: Regular Adult) Pulse 81 Temp 36.1 ?C (97 ?F) (Temporal) Ht 165.1 cm (5' 5 ) Wt 88.9 k (more content not included)... [facility] Evaluation note 08-15-2023 Note Date & Type Note Facility 08-15-2023 Evaluation note Encounter Date Diagnosis Assessment Notes Aug, Left hand pain (ICD-10 - M79.642) Aug, Ganglion cyst of wrist, left (ICD-10 - M67.432) Drink plenty fluids, get plenty of rest. Rest your left wrist is much as you can for the next few days. Take ibuprofen as needed for pain. Apply ice to the wrist 2-3 times a day. Follow-up with your family physician if no improvement in 5 to 7 days Aug, Other Ganglion cyst home care material was printed [facility] Other Clinical Note 05-31-2021 Note Date & Type Note Facility 05-31-2021 Note Patient Education Ma javier Name: Pinky Funez Current Date: 05/31/2021 07:22:39 [place] : 1970 The following sheet(s) are the Patient Education Leaflets for Pinky Funez Oncology Breast Health: Breast Self-Awareness What is breast self-awareness? Breast self-awareness is knowing how your breasts normally look and feel. Your breasts change as you go through different stages of your life. So it's important to learn what is normal for your breasts. Breast self-awareness helps you notice any changes in your breasts right away. Report any changes to your healthcare provider. Why is breast self-awareness important? Many experts now say that women should focus on breast self-awareness instead of doing a breast self-examination (BSE). These experts include the [place] [employer], the U.S. Preventive Services Task Force, and the [place] [employer]nec[employer]. Some experts even advise not teaching women to do a BSE. That's because research hasn't shown a clear benefit to doing BSEs. Breast self-awareness is different than a BSE. Breast self-awareness isn't about following a certain method and schedule. It's about knowing what's normal for your breasts. That way you can notice even small changes right away. If you see any changes, report them to your healthcare provider. Changes to look for Call your healthcare provider if you find any changes in your breasts that concern you. These changes may include: ? A lump ? Nipple discharge other than breastmilk, especially a bloody discharge ? Swelling ? A change in size or shape ? Skin irritation, such as redness, thickening, or dimpling of the skin ? Swollen lymph nodes in the armpit ? Nipple problems, such as pain or redness If you find a lump Contact your provider if you find lumpiness in one breast, feel something different in the tissue, or feel a definite lump. Sometimes lumpiness may be due to menstrual changes. But there may be reason for concern. Your provider may want to see you right away if you have: ? Nipple discharge that is bloody ? Skin changes on your breast, such as dimpling or puckering It's normal to be upset if you find a lump. But it's important to contact your provider right away. Remember that most breast lumps are benign. This means they are not cancer. ? [id number] [employer]. [address] [place] [address], [place] [address]. All rights reserved. This information is not intended as a substitute for professional medical care. Always follow your healthcare professional's instructions. [facility] Evaluation note Note Date & Type Note Facility Evaluation note No assessment information availa [facility] Work Phone: History general Narrative - Reported Note Date & Type Note Facility History general Narrative - Reported Type Medical History Hypothyroid Surgical History hysterectomy Hospitalization History child Hospitalization History see above [facility] Other Summary Purpose Family History No Family History Records FoundNo Family History Records FoundNo Family History Records FoundNo Family History Records FoundNo Family History Records FoundNo Family History Records Found Advance Directives No Advanced Directives Records FoundNo Advanced Directives Records FoundNo Advanced Directives Records FoundNo Advanced Directives Records FoundNo Advanced Directives Records FoundNo Advanced Directives Records Found Additional Source Comments INFORMATION SOURCE (unrecogn ized section and content) DATE CREATED AUTHOR 12/12/2018 [facility] DATE CREATED AUTHOR AUTHOR'S ORGANIZ ATION 06/06/2021 [facility] DATE CREATED AUTHOR AUTHOR'S ORGANIZ ATION 01/04/2023 [facility] DATE CREATED AUTHOR AUTHOR'S ORGANIZ ATION 10/17/2023 [facility] DATE CREATED AUTHOR AUTHOR'S ORGANIZ ATION 11/11/2023 [facility] DATE CREATED AUTHOR AUTHOR'S ORGANIZ ATION 06/04/2024 [facility] Care Teams (unrecognized sec tion and content) Team Status: Inactive Member Role Status Dates JUAN GleasonC Attending Provider Active Goals (unrecognized section and content) Goals may be documented in a n alternate sectionNo Information REASON FOR VISIT (unrecogniz ed section and content) LEFT HAND PAIN, FELT POPPING IN WRIST CARRYING PRESENTS TO WRAP FOR RECORDS PERTAINING TO PATIENTS WHO ARE OR HAVE BEEN ENROLLED IN A CHEMICAL DEPENDENCY/SUBSTANCEABUSE PROGRAM, SOME INFORMATION MAY BE OMITTED. This clinical summary was aggregated from multiple sources. Caution should be exercised in using it in the provision of clinical care. This summary normalizes information from multiple sources, and as a consequence, information in this document may materially change the coding, format and clinical context of patient data. In addition, data may be omitted in some cases. CLINICAL DECISIONS SHOULD BE BASED ON THE PRIMARY CLINICAL RECORDS. [facility] [employer] [facility]. provides no warranty or guarantee of the accuracy or completeness of information in this document.
[2024-08-07 08:42] LABS: Basophils Absolute Auto 0.1 10^3/uL (0.0-0.1); Basophils Percent Auto 0.9 % (0.2-2.0); Eosinophils Absolute Auto 0.2 10^3/uL (0.0-0.7); Hemoglobin 15.3 g/dL (12.0-16.0); Immature Granulocytes Abs Auto 0.01 10^3/uL (0.00-0.03); Immature Granulocytes Pct Auto 0.1 % (0.0-0.5); Lymphocytes Absolute Auto 2.5 10^3/uL (1.2-3.8); Mean Corpuscular HGB Conc 32.6 g/dL (29.9-35.2); Mean Corpuscular Hemoglobin 29.1 pg (26.7-34.0); Mean Corpuscular Volume 89.5 fL (81.0-99.0); Monocytes Absolute Auto 0.5 10^3/uL (0.3-0.8); Monocytes Percent Auto 5.8 % (1.7-12.0); Neutrophils Absolute Auto 4.6 10^3/uL (1.4-6.5); Neutrophils Percent Auto 58.2 % (43.0-75.0); Platelet Count 271 10^3/uL (150-450); Red Blood Count 5.25 10^6/uL (4.20-5.40); Red Cell Distribution Width 12.8 % (11.0-15.0); White Blood Count 7.9 10^3/uL (4.0-11.0)
[2024-08-07 08:49] LABS: Alanine Aminotransferase 47 U/L (14-59); Albumin Globulin Ratio 0.9; Albumin Level 3.4 g/dL (3.4-5.0); Alkaline Phosphatase 90 U/L (46-116); Anion Gap 11.9; Aspartate Amino Transferase 23 U/L (15-37); BUN Creatinine Ratio 16.7; Bilirubin Total 0.4 mg/dL (0.2-1.0); Carbon Dioxide 31.5 mmol/L (21.0-32.0); Chloride 107 mmol/L (98-107); Chol HDL Ratio 3.3; Cholesterol 215 mg/dL (<=200); Estimated GFR (African America >60 (>=60 mL/min/1.73m^2); Estimated GFR (Non-African Ame 57 (>=60 mL/min/1.73m^2); Globulin 3.6 g/dL; Glucose 102 mg/dL (74-106); HDL Cholesterol 65 mg/dL (40-60); Potassium 4.4 mmol/L (3.5-5.1); Sodium 146 mmol/L (136-145); Thyroid Stimulating Hormone 4.969 uIU/mL (0.358-3.740); Triglycerides 103 mg/dL (<=150); VLDL CHOLESTEROL 20.6 mg/dL
== END 2024-08-07 08:13 | disposition home or self-care (01) ==
LOC: LAB 08:15
PROVIDERS: PCP Family Medicine; Visit Provider Family Medicine
DX: Z00.00 Encounter for general adult medical examination without abnormal findings (principal); E03.9 Hypothyroidism, unspecified; F41.9 Anxiety disorder, unspecified; K52.9 Noninfective gastroenteritis and colitis, unspecified
CPT/HCPCS: 36415; 80053; 80061; 84436; 84443; 85025

== ENCOUNTER 2025-03-17 07:33 | Outpatient (OUT) | payer OTHER, SELFPAY ==
--- OUTSIDE RECORDS SUMMARY | 2025-03-17 07:39 | XMS_ITS | CCD ---
Author Organization [facility] Care Team Providers Care Brush Finisher Name Role Phone Gregory Matos Admitting Unavailable Gregory Matos Attending Unavailable Gregory Matos Referring Unavailable House, Chacorta Primary Care Unavailable Gregory Matos Admitting Unavailable Carlo, Gregory Gomez Attending Unavailable Carlo, Gregory Gomez Referring Unavailable House, Ch[facility] Primary Care Unavailable HOUSE, DR ORTIZ Attending Unavailable HOUSE, DR ORTIZ Consulting Unavailable HOUSE, DR ORTIZ Primary Care Unavailable HOUSE, DR ORTIZ Admitting Unavailable Ana, MACHINIST SET UP-C Frances Attending Provider Frances Perez Unavailable Frances Perez Attending Unavailable Ana, Frances Admitting Unavailable SELF Referring Unavailable RACIEL MENDIETA Attending Unavailable HOUSE, CHACORTA P Primary Care Unavailable HOUSE, DO CHACORTA P Attending Unavailable HOUSE, DO CHACORTA P Attending Unavailable HOUSE, CHACORTA P Primary Care Unavailable HOUSE, CHACORTA P Primary Care Unavailable HOUSE, DO CHACORTA P Attending Unavailable HOUSE, CHACORTA P Primary Care Unavailable HOUSE, DO CHACORTA P Admitting Unavailable HOUSE, DO CHACORTA P Attending Unavailable Allergies Allergy Classification Reported Allergen(s) Allergy Type Date of Onset Reaction(s) Facility (2 sources) Penicillin; Translations: [penicillin] Drug Allergy [facility] Repository (1 source) Sulfamethoxazole ; Translations: [sulfamethoxazol e] Drug Allergy [facility] Repository (1 source) Penicillins Drug allergy (disorder) 3 [facility] (1 source) Sulfonamides (Antibiotic) Drug allergy (disorder) 3 [facility] (2 sources) Penicillin G Drug Allergy 5 Unknown[facility] (1 source) Sulf-10 Drug allergy Unknown [facility] Other (1 source) Penicillin Drug Allergy 3 [facility] Repository (2 sources) Sulfonamides (Antibiotic) Drug allergy (disorder) 3 hives [facility] Repository (1 source) sulfADIAZINE; Translations: [SulfADIAZINE Sodium] Drug Allergy [facility] Repository Medications Current Medications Medication Drug Class(es) Dates Sig (Normalized) Sig (Original) levothyroxine (2 sources) l-Thyroxine Start: 11-05-2024 take 1 tablet by mouth once daily Levothyroxine 112 mcg tablet Active 112 MCG PO Daily November 05, 2024 12:00am Synthroid Active oseltamivir 75 mg oral capsule (1 source) Neuraminidase Inhibitor Start: 11-05-2024 take 1 capsule by mouth twice daily Oseltamivir (Tamiflu) 75 mg capsule Active 75 MG PO Twice daily 10 November 05, 2024 12:00am probiotic (1 source) probiotic Active Problems Problem [...] Test Name Value Interpretation Reference Range Facility Outside Recordson 11-08-2024 Outside Records [id number]#1.0 0[facility] Lab - Other Lab Resultson Lab - Other Lab Results [id number]#1. [facility]-28-2024 Miscellaneous [id number]#1.0 0[facility] Rad - Other Radiology Report on 03-24-2024 Rad - Other Radiology Report [id number] 0[facility] Progress Note - Nurseon - Progress Note - Nurse Patient presents in [...] [Verified on: 04/06/2024 08:48 EDT] [facility] CNOVon 11-11-2023 [facility] Office Visit (GASTMN ) PINKY FUNEZ ([id number]) 1970 F Date Time Provider Department 11/11/23 1:30 PM RACIEL MENDIETA GASTMN During your visit today, we recorded the following information about you: Temperature Pulse Blood pressure Weight 97 degrees 81/minute 138/68 88.9 kg Height 1.651 m Diallo Gambino MD, PhD 11/11/2023 4:42 PM Signed [facility] Gastroenterology AND Hepatology 11/11/2023 Pinky Funez 52 year old female Referring physician or PCP: SELF No primary care provider on file. Referred by * to the [facility] for opinion regarding * . My final recommendations will be communicated by way of shared Medical Record for internal providers or letter via the [place] Postal Service for external providers. SUBJECTIVE: HPI: [...] observed, having a Donut from specific bakery. [employer]. Other people shared same Donuts but no one got sick At baseline, she would go for a BM every 3 days, hard stool, no straining. She takes fibers PRN. No concern for dehydration the days before episodes. No family history of colon cancer or IBD Occasional naproxen for headache. From Care everywhere - [facility] Colonoscopy 07/18/2023: Findings: A 5 mm polyp [...] pathology results. Procedure Code(s): --- Professional --- 25013, Colonoscopy, flexible; with removal of tumor(s), polyp(s), or other lesion(s) by snare technique Patient Name:PINKY FUNEZ:1970 (Age: 52)Gender:FTaken:07/18Reported:07/28/20 23Physician(s):Jefferson Peterson MD ([phone])Copy To: Rec. #:[id number]: #[id number] Final Pathologic Diagnosis Hepatic flexure polyp: Hyperplastic polyp fragments Report Electronically Signed Out nsk/07/28/2023Leonela Aly MD Interpretation performed at [facility], [address] [place] [address], License number: [id number]. Clinical History Screening. Gross Description Received in formalin labeled SAMAMMYEL, hepatic flexure polyp is a single pedunculated [...] and submitted in cassette B. (2, ns, [id number], m5) MG [facility]/3GR Specimen(s) Received Hepatic flexure polyp Fee Codes(s): 1; 49164 Review Of Systems A 14 point ROS [...] not takin (more content not included)... Normal [facility] XR hand LT min 3V*on 023 XR hand LT min 3V* [facility] [address] [place] [address] XRay Report Signed Patient: Pinky Funez MR#: [id number] : 1970 Acct:[id number] Age/Sex: 52 / F ADM Date: 08/15/23 Loc: XDUC Room: Type: [facility] Attending Dr: Frances LOMELI Copies to: YANI [...] PROCESS. Impression dictated by: Reagan Bañuelos Jr., D.OBrittney08/15/2023 2:48 PM Dictation Location: [place] [address] Transcribed By: [facility] 08/15/23 1448 Dictated By: Reagan Bañuelos Jr, DO 08/15/23 1444 Signed By: 08/15/23 1448 Normal [facility] XR hand LT min 3V* [facility] Other XR hand LT min 3V* [facility] Other XR hand LT min 3V* [address] [facility] Other XR hand LT min 3V* [place] [id number] [facility] Other XR hand LT min 3V* XRay Report [facility] Other XR hand LT min 3V* Signed [facility] Other XR hand LT min 3V* Patient: Pinky Funez MR#: [id number] [facility] Other XR hand LT min 3V* 014 [facility] Other XR hand LT min 3V* : 1970 Acct:[id number] [facility] Other XR hand LT min 3V* Age/Sex: 52 / F ADM Date: 08/15/23 [facility] Other XR hand LT min 3V* Loc: XDUCLY Room: Type: [facility] Other XR hand LT min 3V* Attending Dr: Frances LOMELI [facility] Other XR hand LT min 3V* Copies to: YANI Bobo [facility] Other XR hand LT min 3V* Ordering Provider: YANI Bobo [facility] Other XR hand LT min 3V* Date of Service: 08/15/23 [facility] Other XR hand LT min 3V* XR/XR hand LT min 3V*: LEFT HAND PAIN [facility] Other XR hand LT min 3V* LEFT HAND - 3 views [facility] Other XR hand LT min 3V* REASON FOR EXAM: Lef t hand injury now with pain and lump over third metacarpal area [facility] Other XR hand LT min 3V* COMPARISON: None [facility] Other XR hand LT min 3V* FINDINGS: [facility] Other XR hand LT min 3V* No focal soft tissue abnormality. No acute bony process is seen. No bony erosions are noted. No [facility] Other XR hand LT min 3V* significant degenerative change. [facility] Other XR hand LT min 3V* XR/XR hand LT min 3V* [facility] Other XR hand LT min 3V* IMPRESSION: [facility] Other XR hand LT min 3V* NO ACUTE BONY PROCESS. [facility] Other XR hand LT min 3V* Impression dictated by: Reagan Bañuelos Jr., D.OBrittney08/15/2023 2:48 PM [facility] Other XR hand LT min 3V* Dictation Location: [place] [address] [facility] Other XR hand LT min 3V* Transcribed By: PWS 08/15/23 1448 [facility] Other XR hand LT min 3V* Dictated By: Reagan Bañuelos Jr, DO 08/15/23 144 [facility] Other XR hand LT min 3V* Signed By: [facility] Other XR hand LT min 3V* 08/15/[address] [place] [address] [facility] Other T4on 12-31-2022 T4 [Mass/Vol] 10.70 ug/dL Normal 4.80-13.90 [facility] Comment on above: Performed By: #### T 4, TSH #### [facility] [address] [place] [address] [address] Veronica Hart TSHon 12-31-2022 TSH 1.619 uIU/mL Normal 0.358-3.740 [facility] Comment on above: Performed By: #### T 4, TSH #### [facility] [address] [place] [address] [address] Veronica Hart Gynecology Office/Clinic Not hilario [...] 50 y/o, , , New pt. Establishing [facility], Last OBGYN appt. was at age 42 when Hysterectomy was performed, Pt. adv. I did just want her to know I have been on this Diindolylmethasone + Bioperine 300mg a day to help with my hormones this last 1.5 months Last pap: H/O Hysterectomy at age 42, Pt. did adv. still have ovaries Mammogram: ? 05/23/21, Normal, [facility]? per pt. FMH: MGM- Uterine Cancer, diagnosed and at age 86 MGP- Cancer, Unknown origin PCP: Dr. Chacorta Reveles in [place] Pt c/o weight gain despite effort since [...] exercise 30 min 5 days weekly. Ordered: 04857 AMB New Preventative Visit 40-64 years Medical [...] or no] (more content not included)... Normal [facility] Coding Summary.on 07-24-2018 Coding Summary. CODING DATE: 07/24/2018 FINAL [facility] STATUS: Home (Routine DC) PAYOR: [facility] [place] APC DESCRIPTION 5113 Level 3 Musculoskeletal Procedures ADMIT DX: REASON FOR VISIT DX: M67.472 Ganglion, left ankle and foot FINAL DX: PRINCIPAL: M67.472 Ganglion, left ankle and foot SECONDARY: M89.8X7 Other specified disorders of bone, ankle and foot E03.9 Hypothyroidism, unspecified PYMT PROC APC STAT DESCRIPTION DOCTOR NAME DATE 10821 Excision of lesion, Gregory Matos DPM 07/22/2018 tendon, tendon sheath, or capsule (including synovectomy) (eg, cyst or ganglion); foot LT Left side (used to identify procedures performed on the left side of the body) 85665 5113 J1 Excision or curettage of Gregory Matos DPM 07/22/2018 bone cyst or benign tumor, tarsal or metatarsal, except talus or calcaneus; LT Left side (used to identify procedures performed on the left side of the body) 46970 Anesthesia for Butch Rich MD 07/22/2018 procedures [...] Marshall Revised Date Saved: 07/24/2018 03:11 pm [place] Main OR Intraoperative Recor don 07-23-2018 Main OR Intraoperative Record IntraOp Document Type FT Summary Primary Physician: Gregory Matos DPM Finalized Date/Time: 07/23/18 09:04:06 Pt. Name: PINYK SALINAS.O.B./Sex: 1970 Female Med Rec #: [id number] Physician: Gregory Matos DPM Financial #: [id number] Pt. Type: A Room/Bed: [facility] Admit/Disch: 07/22/18 06:15:00 - 07/22/18 12:20:00 [...] Entry 3 Case Attendee Alicia Ignacio DPM, Gregory Spence RN, Sonia Meade Role Performed Anesthesiologist Surgeon - Primary Fleshing Machine Operator - Primary Television Director Time In 07/22/18 08:20:00 07/22/18 08:20:00 07/22/18 08:20:00 Time Out 07/22/18 09:14:00 07/22/18 09:14:00 07/22/18 09:14:00 Procedure FOOT EXCISION OF SOFT FOOT EXCISION OF SOFT FOOT EXCISION OF SOFT TISSUE MASS(Left) TISSUE MASS(Left) TISSUE MASS(Left) Comments Dr Rich supervising Last Modified By: Jordy RN, Sonia Spence RN, Sonia Spence RN, Sonia Meade 07/22/18 09:14:15 07/22/18 09:14:15 07/22/18 09:14:15 Entry 4 Entry 5 Case Attendee Alejo Pereira RN, CNOR, Heather Collins Role Performed Scrub - Primary INGREDIENT SCALER Time In 07/22/18 08:20:00 07/22/18 08:20:00 Time [...] Barbee RN, Kimberly Y, Blank RN, CNOR, Tamara Mondragon, [facility], Heather Bentley Time Out Complete 07/22/18 08:36:00 [...] and tissue Entry 1 Skin Integrity Intact, Prentiss, Warm, and Skin Abnormality No Dry Outcomes [...] Points Checked Yes By Sonia Spence RN, Kelli RN, CNOR, Tamara Mondragon, Alicia Igancio Outcomes Met? Yes Last Modified By: Sonia [...] Met? Yes Yes Yes Last Modified By: Sonia Spence RN, RN, Kimberly Y Barbee RN, Kimberly Y 07/22/18 08:42:29 07/22/18 08:42:29 [...] Correct Time 07/22/18 08:30:00 07/22/18 09:07:00 By [facility] Shaper Machine HandHeather Sanchez Barbee RN, Heather Sanchez Barbee RN, [...] RN Patient Status Stable Skin. Condition Intact, Prentiss, Warm, and Dry Airway Maintenance Oxygen in [...] Items DRESSING GAUZE 4 X 4 10'S [504664][F] Site and Details left foot - xeroform, [...] safely administered during the perioperative period For [place] please see scanned medication reconcilliation form for medications used at the field during the procedure. Tourniquet FT Pre-Care Text: Implements protective measures to prevent skin/tissue injury due to mechanical sources Entry 1 Tourniquet Type TOURNIQUET CUFF RED 18 Setting 250 mmHg X 4 [[id number]][F] Equipment Number D Placement Left Ankle Cuff [...] BLANKET MISTRAL AIR Quantity 1 Aid TORSO [[id number]][F] Fluid/Parrott Unit Mistral warming system Setting high/43c Body Site Upper anterior torso Last Modified By: Sonia Spence RN 07/22/18 08:46:31 Case Comments Finalized By: Rain Rich CST Document Signatures Signed By: Sonia Spence RN 07/22/18 09:18 Sonia Spence RN 07/22/18 09:14 Rain Rich CST 07/23/18 09:04 Normal [facility] Progress Note-Physicianon Protein mass conc Patient: PINKY SALINAS Age: 47 years Sex: Female : 1970 Associated Diagnoses: None Author: Butch Rich MD Preoperative Information Anesthesia history: Patient History: [...] All Problems Ganglion cyst / SNOMED CT 1355368662 / Confirmed left foot Hypothyroid / SNOMED CT 59860276 / Confirmed Histories Past Medical History: No active or resolved past medical history items have been selected or recorded. Procedure history: H/O: hysterectomy ([id number]). Social History Social & Psychosocial Habits Alcohol [...] review: No qualifying data available . Plan [place] [employer] Anesthesiologists (ASA) physical status classification: [...] and lungs, allergic reactions, and .. Normal [facility] Comment on above: Result Comment: Elec tronically [...] All Problems Ganglion cyst / SNOMED CT 8658239719 / Confirmed left foot Hypothyroid / SNOMED CT 53398328 / Confirmed Physical Examination Intake and Output [...] discharged from anesthesia care. Condition stable. Normal [facility] Comment on above: Result Comment: Elec tronically [...] Church MD Transcribed by: [email or web address] Technologist: GRIFFIN [facility] Inpatient Patient Summaryon 07-22-2018 Inpatient Patient Summary [facility] Clinical Discharge Instructions PERSON INFORMATION Name: PINKY SALINAS PHYSICIANS Admitting Physician: Gregory Matos DPM Attending Physician: Gregory Matos DPM PCP: Chacorta Reveles DO Discharge Diagnosis: Comment: PATIENT EDUCATION INFORMATION Instructions: Cralo - Post Operative Instructions (Custom) (Custom) Medication Leaflets: Follow up: MEDICATION LIST Comment: [place] Main OR PACU I Recordon 07-09 Main OR PACU I Record PACU Phase I Document Type FT Summary Primary Physician: Gregory Matos DPM Finalized Date/Time: 07/22/18 09:53:32 Pt. Name: PINKY SALINAS /Sex: 1970 Female Med Rec #: [id number] Physician: Gregory Matos DPM Financial #: [id number] Pt. Type: A Room/Bed: [place] [address] Admit/Disch: 07/22/18 06:15:57 - Institution: Case Times [...] By: Larissa Barber RN 07/22/18 09:53 Normal [facility] Main OR PACU II Recordon Main OR PACU II Record PACU Phase II Document Type FT Summary Primary Physician: Gregory Matos DPM Finalized Date/Time: 07/22/18 15:13:22 Pt. Name: PINKY SALINAS/Sex: 1970 Female Med Rec #: [id number] Physician: Gregory Matos DPM Financial #: [id number] Pt. Type: A Room/Bed: 11/06 Admit/Disch: 07/22/18 [...] Signed By: Yris Hendrickson LPN 07/22/18 15:13 [place] Main OR Preoperative Recordo n 07-22-2018 Main OR Preoperative Record PreOp Document Type FT Summary Primary Physician: Gregory Matos DPM Finalized Date/Time: 07/22/18 08:39:16 Pt. Name: PINKY SALINAS /Sex: 1970 Female Med Rec #: [id number] Physician: Gregory Matos DPM Financial #: [id number] Pt. Type: A Room/Bed: 11/06 Admit/Disch: 07/22/18 [...] By: Sonia Spence RN 07/22/18 08:39 Normal [facility] Operative Reporton 11- 8 Operative Report Date of Surgery: 07/22/2018 [...] one week for her first postoperative visit. Kaity Mazariegos Dictated: 07/22/2018 #[id number] Typed: 07/22/2018 #[id number] cc: Gregory Matos D.P.M. [facility] Comment on above: Result Comment: Elec tronically Signed By: Gregory Matos DPM\.br\Date and Time Signed: 07/22/18 10:03 EST Patient Education - Texton 1 09-21-2017 Patient Education - Text [place], [place] Gregory Matos DPM, FACFAS POST OPERATIVE [...] feel free to call the doctor at: [phone] or [phone] Matos paged. Patient signature Date Dr. Gregory Matos DPM, FACFAS Date Revised: 10-16 [facility] Progress Note-Physicianon Protein mass conc Patient: PINKY SALINAS Age: 47 years Sex: Female : 1970 Associated Diagnoses: None Author: Gregory Matos DPM Postoperative Information Procedure: left foot ganglion excision with left midfoot exostectomy Date/ Time: 07/22/18 09:13:00 Preoperative Diagnosis: bridger. Performed by: Gregory Matos DPM. Findings: ruptured ganglion cyst to left first metatarsal cuneiform joint. Specimens Removed: ganglion cyst left foot. Estimated Blood Loss: 0 ml. Medications: 1cc kenalog 40. Complications: None. Anesthesia type: General. Normal [facility] Comment on above: Result Comment: Elec tronically Signed By: Gregory Matos DPM\Date and Time Signed: 07/22/18 09:15 EST Coding Summary.on 07-17-2018 Coding Summary. CODING DATE: 07/17/2018 FINAL [facility] STATUS: Home (Routine DC) PAYOR: [facility] [place] ADMIT DX: REASON FOR VISIT DX: Z01.818 [...] CphT Date Saved: 07/17/2018 01:14 pm Normal [facility] BUNon 07-14-2018 Urea nitrogen mass conc 17 mg/dL Normal 5-21 [facility] Comment on above: Performed By: #### 2 971270, 9277838, 4106831, 88318301, 6434982 #### [facility] [address] [place] [address] CBC w/Indiceson 07-14-2018 Erythrocyte distribution width Ratio (RBC) 12.9 % Normal 10.9-14.2 [facility] Comment on above: Performed By: #### 2 088240, 5415904, 2183238, 57549741, 3084725 #### [facility] [address] [place] [address] Hematocrit Volume Fraction (Bld) 43.0 % Normal 34.0-46.0 [facility] Comment on above: Performed By: #### 2 182882, 8437904, 8311949, 85135732, 5397788 #### [facility] [address] [place] [address] Hemoglobin mass conc (Bld) 14.3 g/dL Normal 12.0-16.0 [facility] Comment on above: Performed By: #### 2 007903, 0228186, 0596607, 77453002, 9128355 #### [facility] [address] [place] [address] MCH Entitic mass (RBC) 29.7 pg Normal 27.0-34.0 [facility] Comment on above: Performed By: #### 2 924775, 4436190, 8919459, 56946401, 3970244 #### [facility] [address] [place] [address] MCHC mass conc (RBC) 33.3 g/dL Normal 31.4-39.3 [facility] Comment on above: Performed By: #### 2 088092, 7005303, 8522984, 60607525, 3741696 #### [facility] [address] [place] [address] MCV Entitic volume (RBC) 89.3 fL Normal 80.0-100.0 [facility] Comment on above: Performed By: #### 2 271312, 3341429, 5608844, 68797307, 5527856 #### [facility] [address] [place] [address] Platelet mean volume Entitic volume (Bld) 10.7 fL Normal 6.4-10.8 [facility] Comment on above: Performed By: #### 2 872816, 9725268, 0882326, 49068071, 0268976 #### [facility] [address] [place] [address] Platelets #/vol (Bld) 216.0 E9/L Normal 150.0-500.0 [facility] Comment on above: Performed By: #### 2 754834, 2369837, 4397110, 38099180, 7515428 #### [facility] [address] [place] [address] RBC #/vol (Bld) 4.8 E12/L Normal 4.3-5.9 [facility] Comment on above: Performed By: #### 2 807421, 3187331, 8105985, 47589168, 3385651 #### [facility] [address] [place] [address] WBC corrected for nucl RBC Auto #/vol (Bld) 7.3 E9/L Normal 4.0-11.0 [facility] Comment on above: Performed By: #### 2 945090, 7844077, 4954523, 45477432, 5204784 #### [facility] [address] [place] [address] Creatinineon 07-14-2018 Creatinine mass conc 0.7 mg/dL Normal 0.5-1.3 [facility] Comment on above: Performed By: #### 2 734651, 1765052, 2742322, 22922376, 7009237 #### [facility] [address] [place] [address] Lyteson 07-14-2018 Anion gap molar conc 9 mmol/L Normal 6-16 [facility] Comment on above: Performed By: #### 2 951750, 0650875, 4113747, 48803514, 6602804 #### [facility] [address] [place] [address] Chloride molar conc 102 mmol/L Normal 101-111 [facility] Comment on above: Performed By: #### 2 137125, 0933975, 2553877, 51211170, 8912218 #### [facility] [address] [place] [address] CO2 molar conc 27 mmol/L Normal 21-31 [facility] Comment on above: Performed By: #### 2 749712, 3007983, 4509740, 60991228, 3247708 #### [facility] [address] [place] [address] Potassium molar conc 4.0 mmol/L Normal 3.5-5.3 [facility] Comment on above: Performed By: #### 2 292121, 5651714, 6885686, 76325590, 4760631 #### [facility] [address] [place] [address] Sodium molar conc 134 mmol/L Low 135-145 [facility] Comment on above: Performed By: #### 2 277739, 1156571, 4526536, 14329731, 3491543 #### [facility] [address] [place] [address] eGFRon 07-14-2018 GFR/1.73 sq M predicted among blacks MDRD vol rate/area (S/P/Bld) mL/min/{1.73_m2} Normal >=59 [facility] Comment on above: Order Comment: Order added by Discern Expert. Result Comment: eGFR is race adjusted. AA=. Performed By: #### 2 464275, 7007251, 1262106, 73092229, 1535903 #### [facility] [address] [place] [address] GFR/1.73 sq M predicted among non-blacks MDRD vol rate/area (S/P/Bld) mL/min/{1.73_m2} Normal >=59 [facility] Comment on above: Order Comment: Order added by Discern Expert. Result Comment: Transfill Technician wilfrido kidney disease could be indicated at eGFR's of less than 60 mL/min/1.73m2. Kidney failure is indicated at less than 15 mL/min/1.73m2. Performed By: #### 2 605877, 1044629, 9506976, 80504913, 8910910 #### [facility] [address] [place] [address] Vital Signs Date Time Vital Sign Value Performing Clinician Facility 11-05-2024 15:03-0500 Body height 165.1 cm [facility] 11-05-2024 15:03-0500 Body mass index (BMI) [Ratio] 35 kg/m2 [facility] 11-05-2024 15:03-0500 Body temperature 98.6 [degF] [facility] 11-05-2024 15:03-0500 Body weight 95.48 kg [facility] 11-05-2024 15:03-0500 Diastolic blood pressure 82 mm[Hg] [facility] 11-05-2024 15:03-0500 Heart rate 97 /min [facility] 11-05-2024 15:03-0500 Respiratory rate 16 /min [facility] 11-05-2024 15:03-0500 SaO2% (BldA) [Mass fraction] 95 % [facility] 11-05-2024 15:03-0500 Systolic blood pressure 138 mm[Hg] [facility] 08-15-2023 13:35-0500 Body height 165.1 cm Frances Metzmond Other [facility] Other 08-15-2023 13:35-0500 Body mass index (BMI) [Ratio] 32.58 kg/m2 Frances Ana Other [facility] Other 08-15-2023 13:35-0500 Body temperature 98.3 [degF] Frances Ana Other [facility] Other 08-15-2023 13:35-0500 Body weight 88.81 kg Frances Ana Other [facility] Other 08-15-2023 13:35-0500 Diastolic blood pressure 85 mm[Hg] Frances Ana Other [facility] Other 08-15-2023 13:35-0500 Respiratory rate 18 /min Frances Ana Other [facility] Other 08-15-2023 13:35-0500 SaO2% (BldA) [Mass fraction] 99 % Frances Ana Other [facility] Other 08-15-2023 13:35-0500 Systolic blood pressure 144 mm[Hg] Frances Ana Other [facility] Other Encounters Encounter Date Encounter Type Care Provider Facility Start: 02-25-2025 ambulatory CHACORTA REVELES Facilit y:[facility] Start: 02-24-2025 ambulatory CHACORTA REVELES Facilit y:[facility] Start: 11-05-2024 End: 11-05-2024 ambulatory [facility] Work Phone: Start: 11-05-2024 End: 11-05-2024 Patient encounter procedure [facility] Work Phone: Start: 06-02-2024 End: 06-02-2024 ambulatory DO CHACORTA REVELES Facility:[facility] Start: 03-04-2024 End: 03-04-2024 ambulatory CHACORTA REVELES Facility:[facility] Start: 11-11-2023 End: 11-11-2023 ambulatory SELF Facility:[facility] Start: 08-15-2023 End: 08-15-2023 ambulatory Frances Perez Facility:[facility] Start: 08-15-2023 End: 08-15-2023 Patient encounter procedure MACHINIST SET UP-C Frances Perez Work Phone: [facility] Work Phone: Start: 08-15-2023 End: 08-15-2023 ambulatory Frances Perez Other [facility] Other Start: 08-15-2023 Office outpatient vi sit 15 minutes Frances Perez [facility] Start: 12-31-2022 End: 01-01-[address] CHACORTA REVELES Facility: Start: 07-22-2018 End: 07-22-2018 Patient encounter procedure Gregory Matos Facility:[facility] Start: 07-14-2018 End: 07-15-2018 Patient encounter procedure Gregory Matos Facility:[facility] Procedures Date Procedure Procedure Detail Performing Clinician Start: 08-15-2023 Plain X-ray of left hand MACHINIST SET UP-C Frances Ana Work Phone: Payers Date Payer Category Payer Self-pay 2018 Unknown [id number] 1970 Unknown [id number] 2.16.84 [id number] 1970 Unknown [id number] 2.16.84 [id number] 1972 Unknown [id number] 2.16.84 [id number] 1972 Unknown [id number] 2.16.8 [id number] 1972 Unknown [id number] 2.16.8 [id number] 1972 Unknown [id number] 2.16.8 [id number] 1972 Unknown [id number] 2.16.8 [id number] 1959 Unknown [id number] Unknown Bhargavi BC/BS [id number] Unknown [id number] 2.16.8 [id number] Social History Date Type Detail Facility Tobacco smoking status NHIS Unknown if ever smoked [facility] Other Start: 1970 Sex Assigned At Female F [facility] Sex Assigned At Sex Assigned At Bir th [facility] Other Start: 11-05-2024 Tobacco smoking status NHIS Never smoked tobacco (finding) [facility] Start: 11-05-2024 Sex Female (finding) [facility] Medication management note 09-17-2024 Note Date & Type Note Facility 09-17-2024 Note Entered by FELICIANO REVELES DO on September 17, 2024 10:54:03 EST From: CHACORTA REVELES DO To: [id number] Sent: 09/17/2024 10:54:03 EST Subject: Medication Management Submitted: Complete:levothyroxine (levothyroxine 112 mcg (0.112 mg) oral tablet) Signed by CHACORTA REVELES DO 09/17/2024 10:54:00 EST Approved with modifications: levothyroxine (levothyroxine 112 mcg tablet) TAKE 1 TABLET BY MOUTH DAILY Qty: 30 tab(s) Days Supply: 30 Refills: 5 Substitutions Allowed Route To Pharmacy - [id number] From: [facility] To: CHACORTA REVELES DO Sent: September 17, 2024 6:20:18 AM 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 Subject: Medication Management Due: September 18, 2024 12:13:45 AM 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 On Hold Pending Signature Drug: levothyroxine (levothyroxine 112 mcg (0.112 mg) oral tablet), 1 tab(s) Oral Daily,Instr:TAKE 1 TABLET BY MOUTH ONCE DAILY Quantity: 30 tab(s) Days Supply: 0 Refills: 4 Substitutions Allowed Notes from Pharmacy: Dispensed Drug: levothyroxine (levothyroxine 112 mcg (0.112 mg) oral tablet), TAKE 1 TABLET BY MOUTH DAILY Quantity: 30 tab(s) Days Supply: 30 Refills: 5 Substitutions Allowed Notes from Pharmacy: [facility] Progress note 11-11-2023 Note Date & Type Note Facility 11-11-2023 Note HNO ID: [id number] Author: DIALLO GAMBINO MD, PhD Service: ? Author Type: Physician Type: Progress Notes Filed: 11/11/2023 16:42 Note Text: [facility] Gastroenterology AND Hepatology 11/11/2023 Pinky Funez 52 year old female Referring physician or PCP: SELF No primary care provider on file. Referred by * to the [facility] for opinion regarding * . My final recommendations will be communicated by way of shared Medical Record for internal providers or letter via the [place] Postal Service for external providers. SUBJECTIVE: HPI: [...] she observed, having a Donut from specific [email or web address]. Other people shared same Donuts but no [...] pathology results. Procedure Code(s): --- Professional --- 89397, Colonoscopy, flexible; with removal of tumor(s), polyp(s), or other lesion(s) by snare technique Patient Name:PINKY FUNEZ:1970 (Age: 52)Gender:FTaken:07/18/2023Reported:07/28hysician(s):Samantha Peterson MD ([phone])Copy To: Rec. #:[id number]: #[id number] Final Pathologic Diagnosis Hepatic flexure polyp: Hyperplastic polyp fragments Report Electronically Signed Out nsk/07/28/2023Romaini Meghan Aly MD Interpretation performed at [facility], [address] [place] [address], License number: [id number]. Clinical History Screening. Gross Description Received in [...] and submitted in cassette B. (2, ns, [id number], m5) MG [facility]/3GR Specimen(s) Received Hepatic flexure polyp Fee Codes(s): 1; 02062 Review Of Systems A 14 point ROS [...] Wt 88.9 k (more content not included)... [facility] Evaluation note 08-15-2023 Note Date & Type [...] Ganglion cyst home care material was printed [facility] Other Clinical Note 05-31-2021 Note Date & Type Note Facility 05-31-2021 Note Patient Education Ma terials Name: Pinky Funez Dimple Current Date: 05/31/2021 07:22:39 [place] : 1970 [...] breast self-examination (BSE). These experts include the [place] [employer], the U.S. Preventive Services Task Force, and the [place] [employer]nec[employer]. Some experts [...] This means they are not cancer. ? [id number] [employer]. [address] [place] [address], [place] [address]. All rights reserved. This information is not intended as a substitute for professional medical care. Always follow your healthcare professional's instructions. [facility] Evaluation note Note Date & Type Note Facility Evaluation note No assessment information availa [facility] Work Phone: History general Narrative - Reported Note Date & Type Note Facility History general Narrative - Reported Type Medical History Hypothyroid Surgical History hysterectomy Hospitalization History child Hospitalization History see above [facility] Other Summary Purpose Family History No Family History Records FoundNo Family History Records FoundNo Family History Records FoundNo Family History Records FoundNo Family History Records FoundNo Family History Records Found Advance Directives No Advanced Directives Records Found Advance Directive Response Recorded Date/ Time Advance Directives No August 6:48pm Chief Complaint and Reason for Visit Chief Complaint Admit Date Cough, congestion November 05, 2024 2:27pm Additional Source Comments INFORMATION SOURCE (unrecogn ized section and content) DATE CREATED AUTHOR [facility] DATE CREATED AUTHOR AUTHOR'S ORGANIZ ATION 06/06/2021 [facility] DATE CREATED AUTHOR AUTHOR'S ORGANIZ ATION 01/04/2023 [facility] DATE CREATED AUTHOR AUTHOR'S ORGANIZ ATION 10/17/2023 [facility] DATE CREATED AUTHOR AUTHOR'S ORGANIZ ATION 11/11/2023 [facility] DATE CREATED AUTHOR AUTHOR'S ORGANIZ ATION 02/27/2025 [place] Care Teams (unrecognized sec tion and content) Team Status: Inactive Member Role Status Dates YANI Gleason Attending Provider Active Team Status: Active Member Role Status Dates Chacorta Reveles DO Primary Care Provider Active Team Status: Inactive Member Role Status Dates Svetlana Gaines APRN Attending Provider Active S tart: November 05, 2024 End: November 05, 2024 Chacorta Reveles DO Primary Care Provider Active Start: November 05, 2024 End: November 05, 2024 Goals (unrecognized section and content) Goals may be documented in a n alternate sectionNo InformationGoals may be documented in an alternate section REASON FOR VISIT (unrecogniz ed section and [...] BE BASED ON THE PRIMARY CLINICAL RECORDS. [facility]. provides no warranty or guarantee of the accuracy or completeness of information in this document.
[2025-03-17 08:27] LABS: Thyroid Stimulating Hormone 8.050 uIU/mL (0.358-3.740)
[2025-03-18 04:07] LABS: FSH 52.3 mIU/mL (.)
== END 2025-03-17 07:34 | disposition home or self-care (01) ==
LOC: LAB 07:36
PROVIDERS: PCP Family Medicine; Visit Provider Family Medicine
DX: Z00.00 Encounter for general adult medical examination without abnormal findings (principal); F41.9 Anxiety disorder, unspecified; K52.9 Noninfective gastroenteritis and colitis, unspecified; E03.9 Hypothyroidism, unspecified; R23.2 Flushing; Z78.0 Asymptomatic menopausal state; Z12.31 Encounter for screening mammogram for malignant neoplasm of breast
CPT/HCPCS: 36415; 83001; 84436; 84443

== ENCOUNTER 2025-03-25 13:08 | Outpatient (OUT) | payer OTHER, SELFPAY ==
--- OUTSIDE RECORDS SUMMARY | 2025-03-25 13:10 | XMS_ITS | Clinical Summary ---
Author Organization [facility] Address [address] [place] [address] Care Team Providers Care Elevator Runner Name Role Phone Unavailable Primary Care Provider Unavailabl e Allergies Active Allergy Reactions Criticality Noted Date Comments Penicillins Rash Low 11/08/1974 Sulfa (Sulfonamide Antibiotics) Rash Low 03/09 Bad rash Medications ciprofloxacin HCl (CIPRO) 500 mg tablet Take 1 tablet by mouth every 12 hours. 4 Active dicyclomine (BENTYL) 20 mg tablet TAKE 1 TABLET BY MOUTH EVERY 8 HOURS NEEDED FOR ABDOMINAL CRAMPS 4 Active HYDROcodone-jovana taminophen (NORCO) 5-325 mg per tablet Take 1 tablet by mouth. 4 Active levothyroxine (SYNTHROID) 112 mcg tablet Take 1 tablet by mouth every afternoon. 4 Active metroNIDAZOLE (FLAGYL) 500 mg tablet Take 1 tablet by mouth every 12 hours. 4 Active ondansetron (ZOFRAN) 4 mg tablet Take 4 mg by mouth every 6 hours as needed. 4 Active busPIRone (BUSPAR) 10 mg tablet Take 10 mg by mouth. 3 Active Social History Tobacco Use Types Packs/Day Years Used Date Smoking Tobacco: Never Passive Smoke Exposure: Never Smokeless Tobacco: Never Tobacco Cessation:Counseling Given: Not Answered Alcohol Use Standard Drinks/Week Comments Never 0 (1 standard drink = 0.6 oz pur e alcohol) Comments No Sex and Gender Information Value Date Recorded Sex Assigned at Female 11/09/2023 8:36 PM EST Legal Sex Female 1:34 PM EST Gender Identity Female 11/09/2023 8:36 PM EST Sexual Orientation Straight 11/09/2023 8: 36 PM EST Last Filed Vital Signs Vital Sign Reading Time Taken Comments Blood Pressure 138/68 11/11/2023 1:18 PM EST Pulse 81 11/11/2023 1:18 PM EST Temperature 36.1 C (97 F) 11/11/2023 1:18 PM EST Respiratory Rate - - Oxygen Saturation 99% 11/11/2023 1:18 PM EST Inhaled Oxygen Concentration - - Weight 88.9 kg (196 lb) 11/11/2023 1:18 PM EST Height 165.1 cm (5' 5 ) 11/11/2023 1:18 PM EST Body Mass Index 32.62 11/11/2023 1:18 PM EST Plan of Treatment Health Maintenance Due Date Last Done Comments Anxiety Screening 1990 Depression Screening 1990 HIV Screening 1990 Hepatitis C Screening 1990 DTaP,Tdap,Td Vaccine (1 - Tdap) 12/17/1991 Hepatitis B Vaccine (1 of 3 - 19+ 3-dose series) 12/17/1991 Cervical Cancer Screening [address] Colonography 2017 Cologuard (FIT-DNA) 2017 Diabetes Screening 2017 Fecal Occult Blood 2017 Lipid Screening 2017 Sigmoidoscopy 2017 Pneumococcal Vaccine: 50+ (1 of 1 - PCV) 2022 Shingrix Vaccine (1 of 2) 2022 Covid-19 Vaccine (2 - season) 2024 Colonoscopy 07/18/2024 07/18/2023, 07/18/2023 Colorectal Cancer Screening 07/18/2024 Influenza Vaccine (#1) [address] [place] [address] HEALTH CHOICE PLAN GENERIC
--- NOTE | 2025-03-25 13:14 | MM_ITS ---
Patient Name: PINKY FUNEZ MR#: [id number] : 1970 Exam Date: 03/25/2025 Ordering Doctor: DR ANGEL REVELES D.O. RADIOLOGY REPORT PROCEDURE: MM TOMOSYNTHESIS SCREENING BI COMPARISON: MM TOMOSYNTHESIS SCREENING BI, 03/23/2024. MM TOMOSYNTHESIS SCREENING BI, 03/20/2023. MG MAMM SCREEN 3D VIKTORIA CAD, 05/23/2021. MG MAMM VIKTORIA SCRN W CAD DIG, 07/13/2013. INDICATIONS: Screening Calculator Name NCI Breast Cancer Risk Assessment Tool 5 Year Breast Cancer Risk 0.90% Lifetime Breast Cancer Risk 7.10% Personal Breast Cancer No Personal Ovarian Cancer No Treatments None Family Cancers Grandmother-maternal with uterine cancer at age 86. LOCATION: [facility] BREAST COMPOSITION: There are scattered areas of fibroglandular density. FINDINGS: RIGHT BREAST: No significant suspicious finding. LEFT BREAST: No significant suspicious finding. DIAGNOSTIC CATEGORY 1--NEGATIVE. RECOMMENDATIONS: ROUTINE MAMMOGRAM AND CLINICAL EVALUATION IN 12 MONTHS. PLEASE NOTE: A NORMAL MAMMOGRAM DOES NOT EXCLUDE THE POSSIBILITY OF BREAST CANCER. A CLINICALLY SUSPICIOUS PALPABLE LUMP SHOULD BE BIOPSIED. Dictated by: Jesus Liriano MD on 03/25/2025 at 14:59 Approved by: Jesus Liriano MD on 03/25/2025 at 15:07
--- OUTSIDE RECORDS SUMMARY | 2025-03-25 13:27 | XMS_ITS | CCD ---
Author Organization [facility] CliniSyms Care Team Providers Care Web Applications Administrator Name Role Phone Gregory Matos Admitting Unavailable Carlo, Gregory Gomez Attending Unavailable Carlo, Gregory Gomez Referring Unavailable House, Chacorta Primary Care Unavailable Carlo, Gregory Gomez Admitting Unavailable Carlo, Gregory Gomez Attending Unavailable Carlo, Gregory Gomez Referring Unavailable House, Chacorta Primary Care Unavailable HOUSE, DR ORTIZ Attending Unavailable HOUSE, DR ORTIZ Consulting Unavailable HOUSE, DR ORTIZ Primary Care Unavailable HOUSE, DR ORTIZ Admitting Unavailable Ana, SHEET METAL SUPERVISOR-C Frances Attending Provider Frances Perez Unavailable Frances Perez Attending Unavailable Ana, Frances Admitting Unavailable SELF Referring Unavailable RACIEL MENDIETA Attending Unavailable HOUSE, CHACORTA Treviño Primary Care Unavailable HOUSE, DO CHACORTA Treviño Admitting Unavailable HOUSE, DO CHACORTA Treviño Attending Unavailable HOUSE, DO CHACORTA Treviño Attending Unavailable HOUSE, CHACORTA P Primary Care Unavailable HOUSE, CHACORTA P Primary Care Unavailable HOUSE, DO CHACORTA P Attending Unavailable House Chacorta QUACH Primary Care Provider [phone] Susan Hussein APRN Attending Provider [phone] Allergies Allergy Classification Reported Allergen(s) Allergy Type Date of Onset Reaction(s) Facility (2 sources) Penicillin; Translations: [penicillin] Drug Allergy [facility] Repository (1 source) Sulfamethoxazole ; Translations: [sulfamethoxazol e] Drug Allergy [facility] Repository (1 source) Penicillins Drug allergy (disorder) 3 [facility] Repository (1 source) Sulfonamides (Antibiotic) Drug allergy (disorder) 3 [facility] Repository (3 sources) Penicillin G Drug Allergy 5 Unknown, [facility] (1 source) Sulf-10 Drug allergy Unknown [employer] Other (1 source) Penicillin Drug Allergy 3 [facility] Repository (3 sources) Sulfonamides (Antibiotic) Drug allergy (disorder) 3 hives [facility] Repository (1 source) sulfADIAZINE; Translations: [SulfADIAZINE Sodium] Drug Allergy [facility] Repository Medications Current Medications Medication Drug Class(es) Dates Sig (Normalized) Sig (Original) levothyroxine sodium 0.112 mg oral tablet (3 sources) l-Thyroxine Start: 11-05-2024 take 1 tablet by mouth once daily Levothyroxine 112 mcg tablet Active 112 MCG PO Daily November 05, 2024 1:00am Complies with drug therapy Start: 11-05-2024 take 1 tablet by alton th once daily Levothyroxine 112 mcg tablet Active 112 MCG PO Daily November 05, 2024 12:00am Synthroid Active probiotic (1 source) probiotic Active Completed/Discontinued Medications Medication Drug Class(es) Dates Sig (Normalized) Sig (Original) oseltamivir 75 mg oral capsule (2 sources) Neuraminidase Inhibitor Start: 11-05-2024 End: 03-24-2025 take 1 capsule by mouth twice daily Oseltamivir (Tamiflu) 75 mg capsule Discontinued 75 MG PO Twice daily 10 5 November 05, 2024 1:00am March 24, 2025 9:57am Problems Problem Classification Problem Date Documented Da te Episodic/Chronic Other connective tissue disease (1 source) Pain in left hand Episodic Other connective tissue disease (1 source) Ganglion, left wrist Episodic Other upper respiratory infections (1 source) Viral upper respiratory tract infection; Translations: [Acute upper respiratory infection, unspecified] 11-05-2024 Episodic Thyroid disorders (4 sources) Hypothyroidism, unspecified; Translations: [HYPOTHYROIDISM UNSPECIFIED] Onset: 12-31-2022 Chronic Unclassified (1 source) Pain in left hand; Translations: [Pain in left hand] Onset: 08-15-2023 Results Test Name Value Interpretation Reference Range Facility Lab - Other Lab [facility] Lab - Other Lab Results [id number]#1.0 0OTGTIFF Normal [facility] Lab - Other Lab [facility] - Other Lab Results [id number]#1. [facility] 11-08-2024 Outside Records [id number]#1.0 [facility] Lab - Other Lab [facility] - Other Lab Results [id number]#1. [facility] Miscellaneouson 04-28-2024 Miscellaneous [id number]#1.0 0[facility] Rad - Other Radiology Report on 03-24-2024 Rad - Other Radiology Report [id number]#1.0 [facility]OVon 11-11-2023 CNOV Office Visit (GASTMN ) PINKY FUNEZ ([id number]) 1970 F Date Time Provider Department 11/11/23 1:30 PM RACIEL MENDIETA During your visit today, we recorded the following information about you: Temperature Pulse Blood pressure Weight 97 degrees 81/minute 138/68 88.9 kg Height 1.651 m Diallo Gambino MD, PhD 11/11/2023 4:42 PM Signed [facility] Hepatology 11/11/2023 Pinky Funez 52 year old female Referring physician or PCP: SELF No primary care provider on file. Referred by * to the [facility] for opinion regarding * . My final recommendations will be communicated by way of shared Medical Record for internal providers or letter via the [employer] for external providers. SUBJECTIVE: HPI: [...] observed, having a Donut from specific bakery. [employer]. Other people shared same Donuts but no [...] pathology results. Procedure Code(s): --- Professional --- 14944, Colonoscopy, flexible; with removal of tumor(s), polyp(s), or other lesion(s) by snare technique Patient Name:PINKY FUNEZ:1970 (Age: 52)Gender:FTaken:07/18Reported:07/28/20 23Physician(s):Jefferson Peterson MD ([phone])Copy To: Rec. #:[id number]: #[id number] Final Pathologic Diagnosis Hepatic flexure polyp: Hyperplastic polyp fragments Report Electronically Signed Out nsk/07/28/2023Leonela Aly MD Interpretation performed at [facility], [address] [place] [address], [place] [address], License number: [id number]. Clinical History Screening. Gross Description Received in formalin labeled DIVYAEL, hepatic flexure polyp is a single pedunculated [...] and submitted in cassette B. (2, ns, [id number], m5) [place] [facility]07/18/2023R Specimen(s) Received Hepatic flexure polyp Fee Codes(s): 1; 15520 Review Of Systems A 14 point ROS [...] not takin (more content not included)... Normal [facility] XR hand LT min 3V*on 023 XR hand LT min 3V* [address] [address] XRay Report Signed Patient: Pinky Funez MR#: [id number] : 1970 Acct:[id number] Age/Sex: 52 / F ADM Date: 08/15/23 Loc: XDUCLY Room: Type: [facility] Attending Dr: Frances LOMELI Copies to: YANI [...] Bañuelos Jr., D.O.08/15/2023 2:48 PM Dictation Location: [facility] Transcribed By: [facility] 08/15/23 1448 Dictated By: Reagan Bañuelos Jr, DO 08/15/23 1444 Signed By: 08/15/23 1448 Normal [facility] XR hand LT min 3V* [facility] [employer] Other XR hand LT min 3V* [facility] [employer] Other XR hand LT min 3V* [address] [facility] [employer] Other XR hand LT min 3V* [place] [address] [facility] [employer] Other XR hand LT min 3V* XRay Report [facility] [employer] Other XR hand LT min 3V* Signed [employer] Other XR hand LT min 3V* Patient: Pinky Funez MR#: [id number] [employer] Other XR hand LT min 3V* 014 [employer] Other XR hand LT min 3V* : 1970 Acct:[id number] [employer] Other XR hand LT min 3V* Age/Sex: 52 / F ADM Date: 08/15/23 [employer] Other XR hand LT min 3V* Loc: XDUCLY [facility]: [facility] Other XR hand LT min 3V* Attending Dr: Frances LOMELI [employer] Other XR hand LT min 3V* Copies to: YANI Bobo [employer] Other XR hand LT min 3V* Ordering Provider: YANI Bobo [employer] Other XR hand LT min 3V* Date of Service: 08/15/23 [employer] Other XR hand LT min 3V* XR/XR hand LT min 3V*: LEFT HAND PAIN [employer] Other XR hand LT min 3V* LEFT HAND - 3 views [employer] Other XR hand LT min 3V* REASON FOR EXAM: Lef t hand injury now with pain and lump over third metacarpal area [employer] Other XR hand LT min 3V* COMPARISON: None [employer] Other XR hand LT min 3V* FINDINGS: [employer] Other XR hand LT min 3V* No focal soft tissue abnormality. No acute bony process is seen. No bony erosions are noted. No [employer] Other XR hand LT min 3V* significant degenerative change. [employer] Other XR hand LT min 3V* XR/XR hand LT min 3V* [employer] Other XR hand LT min 3V* IMPRESSION: [employer] Other XR hand LT min 3V* NO ACUTE BONY PROCESS. [employer] Other XR hand LT min 3V* Impression dictated by: Reagan Bañuelos Jr., D.O.08/15/2023 2:48 PM [employer] Other XR hand LT min 3V* Dictation Location: [place] [address] [employer] Other XR hand LT min 3V* Transcribed By: PWS 08/15/23 1448 [employer] Other XR hand LT min 3V* Dictated By: Reagan Bañuelos Jr, DO 08/15/23 1444 [employer] Other XR hand LT min 3V* Signed By: [employer] Other XR hand LT min 3V* 08/15/[address] [place] [address] [employer] Other T4on 12-31-2022 T4 [Mass/Vol] 10.70 ug/dL Normal 4.80-13.90 [facility] Comment on above: Performed By: #### T 4, TSH #### [facility] [address] [place] [address] Dr. Veronica Hart TSHon 12-31-2022 TSH 1.619 uIU/mL Normal 0.358-3.740 [facility] Comment on above: Performed By: #### T 4, TSH #### [facility] [address] [address] [address] Veronica Hart Gynecology Office/Clinic Not hilario [...] ovaries Mammogram: ? 05/23/21, Normal, Done at [facility]? per pt. FMH: MGM- Uterine Cancer, diagnosed and at age 86 MGP- Cancer, Unknown origin PCP: Dr. Chacorta Reveles in [place] Pt c/o weight gain despite effort since [...] exercise 30 min 5 days weekly. Ordered: 91589 AMB New Preventative Visit 40-64 years Medical [...] or no] (more content not included)... Normal [facility] Coding Summary.on 07-24-2018 Coding Summary. CODING DATE: 07/24/2018 FINAL [facility] [place] [facility] STATUS: Home (Routine DC) PAYOR: [facility] [place] APC DESCRIPTION 5113 Level 3 Musculoskeletal Procedures ADMIT DX: REASON FOR VISIT DX: M67.472 Ganglion, left ankle and foot FINAL DX: PRINCIPAL: M67.472 Ganglion, left ankle and foot SECONDARY: M89.8X7 Other specified disorders of bone, ankle and foot E03.9 Hypothyroidism, unspecified PYMT PROC APC STAT DESCRIPTION DOCTOR NAME DATE 66845 Excision of lesion, Gregory Matos DPM 07/22/2018 tendon, tendon sheath, or capsule (including synovectomy) (eg, cyst or ganglion); foot LT Left side (used to identify procedures performed on the left side of the body) 29830 5113 J1 Excision or curettage of Gregory Matos DPM 07/22/2018 bone cyst or benign tumor, tarsal or metatarsal, except talus or calcaneus; LT Left side (used to identify procedures performed on the left side of the body) 38480 Anesthesia for Butch Rich MD 07/22/2018 procedures [...] Marshall Revised Date Saved: 07/24/2018 03:11 pm [facility] Main OR Intraoperative Recor don 07-23-2018 Main OR Intraoperative Record IntraOp Document Type FT Summary Primary Physician: Gregory Matos DPM Finalized Date/Time: 07/23/18 09:04:06 Pt. Name: PINKY SALINAS /Sex: 1970 Female Med Rec #: [id number] Physician: Gregory Matos DPM Financial #: [id number] Pt. Type: A Room/Bed: [place] [address] Admit/Disch: 07/22/18 06:15:00 - 07/22/18 12:20:00 Institution: Case Times FT Entry 1 Patient Times In Room 07/22/18 08:20:00 Out Room 07/22/18 09:14:00 Procedure Times Start 07/22/18 08:38:00 Stop 07/22/18 09:10:00 Anesthesia Times Start 07/22/18 08:20:00 Stop 07/22/18 09:14:00 Last Modified By: Rain Rich CST 07/22/18 09:14:13 General Comments: 07/23/18 Chart opened to review and send charges Galen Rich HAND TOUCH UP PAINTER Case Attendance FT Entry 1 Entry 2 Entry 3 Case Attendee Alicia Ignacio DPM, Gregory Spence RN, Sonia Meade Role Performed Anesthesiologist Surgeon - Primary Time Lock Expert - Primary Tier Lift Truck Operator Time In 07/22/18 08:20:00 07/22/18 08:20:00 [...] Heather Collins Role Performed Scrub - Primary COMMUNICATIONS EDITOR Time In 07/22/18 08:20:00 07/22/18 08:20:00 Time [...] (If Applicable) PreOp Antibiotic Yes Time Out Christopher HERNANDEZ, Alicia Santos, Given Participants Gregory Matos DPM, Barbee RN, Kimberly Y, Kelli RN, CNOR, [facility], Heather Bentley Time Out Complete 07/22/18 08:36:00 [...] and tissue Entry 1 Skin Integrity Intact, [place], Warm, and Skin Abnormality No Dry Outcomes [...] Correct Time 07/22/18 08:30:00 07/22/18 09:07:00 By [place] [facility] [place] Supervisor Ride AssemblyHeather Sanchez Barbee RN, Heather Sanchez Barbee RN, [...] RN Patient Status Stable Skin. Condition Intact, [place], Warm, and Dry Airway Maintenance Oxygen in [...] Items DRESSING GAUZE 4 X 4 10'S [338165][F] Site and Details left foot - xeroform, [...] safely administered during the perioperative period For Oscar-Rashaad please see scanned medication reconcilliation form for medications used at the field during the procedure. Tourniquet FT Pre-Care Text: Implements protective measures to prevent skin/tissue injury due to mechanical sources Entry 1 Tourniquet Type TOURNIQUET CUFF RED 18 Setting 250 mmHg X 4 [[id number]][F] Equipment Number D Placement Left Ankle Cuff [...] BLANKET MISTRAL AIR Quantity 1 Aid TORSO [[id number]][F] Fluid/[place] Unit Mistral warming system Setting high/43c Body Site Upper anterior torso Last Modified By: Sonia Spence RN 07/22/18 08:46:31 Case Comments Finalized By: Rain Rich CST Document Signatures Signed By: Sonia Spence RN 07/22/18 09:18 Sonia Spence RN 07/22/18 09:14 Rain Rich CST 07/23/18 09:04 Normal [facility] Progress Note-Physicianon Protein mass conc Patient: [...] All Problems Ganglion cyst / SNOMED CT 8424398963 / Confirmed left foot Hypothyroid / SNOMED CT 68700283 / Confirmed Histories Past Medical History: No active or resolved past medical history items have been selected or recorded. Procedure history: H/O: hysterectomy ([id number]). Social History Social & Psychosocial Habits Alcohol [...] review: No qualifying data available . Plan [place] [employer] Anesthesiologists (ASA) physical status classification: [...] and lungs, allergic reactions, and .. Normal [facility] Comment on above: Result Comment: Elec tronically Signed By: Butch Rich MD\Brittneybr\Date and Time Signed: 07/23/18 11:51 EST Protein mass conc Patient: PINKY SALINAS Age: 47 years Sex: Female : 1970 Associated Diagnoses: None Author: Butch Rich MD Postoperative Information Post Operative Note: Post Anesthesia Care Unit. Anesthetic utilized: General. Health Status Allergies: Allergic Reactions (All) Severity Not Documented Penicillin- Rash. Sulfamethoxazole- Rash. Problem list: All Problems Ganglion cyst / SNOMED CT 2553846036 / Confirmed left foot Hypothyroid / SNOMED CT 03651428 / Confirmed Physical Examination Intake and Output [...] discharged from anesthesia care. Condition stable. Normal [facility] Comment on above: Result Comment: Elec [...] Church MD Transcribed by: [email or web address] Technologist: GRIFFIN Normal [facility] Inpatient Patient Summaryon 07-22-2018 Inpatient Patient Summary [facility] Clinical Discharge Instructions PERSON INFORMATION Name: PINKY SALINAS PHYSICIANS Admitting Physician: Grgeory Matos DPM Attending Physician: Gregory Matos DPM PCP: Chacorta Reveles DO Discharge Diagnosis: Comment: PATIENT EDUCATION INFORMATION Instructions: Carlo - Post Operative Instructions (Custom) (Custom) Medication Leaflets: Follow up: MEDICATION LIST Comment: Normal [facility] Main OR PACU I Recordon 07-09 Main OR PACU I Record PACU Phase I Document Type FT Summary Primary Physician: Gregory Matos DPM Finalized Date/Time: 07/22/18 09:53:32 Pt. Name: PINKY SALINAS /Sex: 1970 Female Med Rec #: [id number] Physician: Gregory Matos DPM Financial #: [id number] Pt. Type: A Room/Bed: [place] [address] Admit/Disch: 07/22/18 06:15:57 - Institution: Case Times [...] By: Larissa Barber RN 07/22/18 09:53 Normal [facility] Main OR PACU II Recordon Main OR PACU II Record PACU Phase II Document Type FT Summary Primary Physician: Gregory Matos DPM Finalized Date/Time: 07/22/18 15:13:22 Pt. Name: PINKY SALINAS/Sex: 1970 Female Med Rec #: [id number] Physician: Gregory Matos DPM Financial #: [id number] Pt. Type: A Room/Bed: Admit/Disch: 07/22/18 06:15:57 - Institution: Case Times [...] Signed By: Yris Hendrickson LPN 07/22/18 15:13 Normal [facility] Main OR Preoperative Recordo n 07-22-2018 Main OR Preoperative Record PreOp Document Type FT Summary Primary Physician: Gregory Matos DPM Finalized Date/Time: 07/22/18 08:39:16 Pt. Name: PINKY SALINAS /Sex: 1970 Female Med Rec #: [id number] Physician: Gregory Matos DPM Financial #: [id number] Pt. Type: A Room/Bed: [place] [address] Admit/Disch: 07/22/18 06:15:57 - Institution: Case Times [...] By: Sonia Spence RN 07/22/18 08:39 Normal [facility] Operative Reporton 11--[id number] 8 Operative Report Date of Surgery: 07/22/2018 SURGEON: Gregory Matos, Bernadine.P.MBrittney PREOPERATIVE DIAGNOSIS: Left foot ganglion cyst with [...] first postoperative visit. Kaity Mazariegos Dictated: 07/22/2018 #[id number] Typed: 07/22/2018 #[id number] cc: Gregory Matos D.P.M. [facility] Comment on above: Result Comment: Elec tronically Signed By: Gregory Matos DPM\.br\Date and Time Signed: 07/22/18 10:03 EST Patient Education - Texton 1 09-21-2017 Patient Education - Text [place], [place] Gregory Matos DPM, FACFAS POST OPERATIVE [...] feel free to call the doctor at: [phone] or [phone] Matos paged. Patient signature Date Dr. Gregory Matos DPM, FACFAS Date Revised: 10-16 [facility] Progress Note-Physicianon Protein mass conc Patient: [...] 40. Complications: None. Anesthesia type: General. Normal [facility] Comment on above: Result Comment: Elec tronically Signed By: Gregory Matos DPM\Date and Time Signed: 07/22/18 09:15 EST Coding Summary.on 07-17-2018 Coding Summary. CODING DATE: 07/17/2018 FINAL [facility] [place] [facility] STATUS: Home (Routine DC) PAYOR: [facility] [place] ADMIT DX: REASON FOR VISIT DX: Z01.818 [...] CphT Date Saved: 07/17/2018 01:14 pm Normal [facility] BUNon 07-14-2018 Urea nitrogen mass conc 17 mg/dL Normal 5-21 [facility] Comment on above: Performed By: #### 2 758144, 0068510, 9869636, 60933046, 9779458 #### [facility] [address] [place] [address] CBC w/Indiceson 07-14-2018 Erythrocyte distribution width Ratio (RBC) 12.9 % Normal 10.9-14.2 [facility] Comment on above: Performed By: #### 2 010104, 6176603, 0546696, 72577896, 7428784 #### [facility] [address] [place] [address] Hematocrit Volume Fraction (Bld) 43.0 % Normal 34.0-46.0 [facility] Comment on above: Performed By: #### 2 931824, 8068234, 1986123, 28894229, 2789106 #### [facility] [address] [place] [address] Hemoglobin mass conc (Bld) 14.3 g/dL Normal 12.0-16.0 [facility] Comment on above: Performed By: #### 2 952442, 3193602, 9123001, 33606655, 9741305 #### [facility] [address] [place] [address] MCH Entitic mass (RBC) 29.7 pg Normal 27.0-34.0 [facility] Comment on above: Performed By: #### 2 880688, 4321918, 2583738, 10896961, 6803153 #### [facility] [address] [place] [address] MCHC mass conc (RBC) 33.3 g/dL Normal 31.4-39.3 [facility] Comment on above: Performed By: #### 2 058836, 6289538, 6824277, 44369555, 5457495 #### [facility] [address] [place] [address] MCV Entitic volume (RBC) 89.3 fL Normal 80.0-100.0 [facility] Comment on above: Performed By: #### 2 407721, 5282387, 9294810, 90908764, 0202249 #### [facility] [address] [place] [address] Platelet mean volume Entitic volume (Bld) 10.7 fL Normal 6.4-10.8 [facility] Comment on above: Performed By: #### 2 740583, 4237628, 7059555, 11287528, 8030126 #### [facility] [address] [place] [address] Platelets #/vol (Bld) 216.0 E9/L Normal 150.0-500.0 [facility] Comment on above: Performed By: #### 2 477608, 5835302, 3337318, 66529402, 4984525 #### [facility] [address] [place] [address] RBC #/vol (Bld) 4.8 E12/L Normal 4.3-5.9 [facility] Comment on above: Performed By: #### 2 742152, 5293440, 1250792, 26739595, 9165918 #### [facility] [address] [place] [address] WBC corrected for nucl RBC Auto #/vol (Bld) 7.3 E9/L Normal 4.0-11.0 [facility] Comment on above: Performed By: #### 2 379559, 6833866, 2649501, 53005601, 0252095 #### [facility] [address] [place] [address] Creatinineon 07-14-2018 Creatinine mass conc 0.7 mg/dL Normal 0.5-1.3 [facility] Comment on above: Performed By: #### 2 350540, 2687429, 5104805, 32066153, 9343246 #### [facility] [address] [place] [address] Lyteson 07-14-2018 Anion gap molar conc 9 mmol/L Normal 6-16 [facility] Comment on above: Performed By: #### 2 798696, 4994021, 1590331, 07735543, 2885244 #### [facility] [address] [place] [address] Chloride molar conc 102 mmol/L Normal 101-111 [facility] Comment on above: Performed By: #### 2 261321, 8956464, 7503571, 92883988, 3632112 #### [facility] [address] [place] [address] CO2 molar conc 27 mmol/L Normal 21-31 [facility] Comment on above: Performed By: #### 2 763479, 8186953, 8236643, 50767349, 0904549 #### [facility] [address] [place] [address] Potassium molar conc 4.0 mmol/L Normal 3.5-5.3 [facility] Comment on above: Performed By: #### 2 028064, 3860815, 0081608, 97697693, 1180247 #### [facility] [address] [place] [address] Sodium molar conc 134 mmol/L Low 135-145 [facility] Comment on above: Performed By: #### 2 495833, 2999718, 6007785, 12354945, 5629575 #### [facility] [address] [place] [address] eGFRon 07-14-2018 GFR/1.73 sq M predicted among blacks MDRD vol rate/area (S/P/Bld) mL/min/{1.73_m2} Normal >=59 [facility] Comment on above: Order Comment: Order added by Discern Expert. Result Comment: eGFR is race adjusted. AA=. Performed By: #### 2 149081, 8914108, 0173024, 98657729, 2447489 #### [facility] [address] [place] [address] GFR/1.73 sq M predicted among non-blacks MDRD vol rate/area (S/P/Bld) mL/min/{1.73_m2} Normal >=59 [facility] Comment on above: Order Comment: Order added by Discern Expert. Result Comment: Computer Graphic Artist wilfrido kidney disease could be indicated at eGFR's of less than 60 mL/min/1.73m2. Kidney failure is indicated at less than 15 mL/min/1.73m2. Performed By: #### 2 090755, 4918029, 2774067, 75316730, 1459751 #### [facility] [address] [place] [address] Vital Signs Date Time Vital Sign Value Performing Clinician Facility 03-24-2025 10:03 Body height 165.1 cm [employer] DO Work Phone: [facility] 03-24-2025 10:03-040 Body mass index (BMI) [Ratio] 35.3 kg/m2 [employer] Work Phone: [facility] 03-24-2025 10:03040 Body temperature 97.7 [degF] [facility] House DO Work Phone: [facility] 03-24-2025 10:03-0400 Body weight 96.27 kg Chacorta House DO Work Phone: [facility] 03-24-2025 10:03-0400 Diastolic blood pressure 82 mm[Hg] Chacorta House DO Work Phone: [facility] 03-24-2025 10:03-0400 Heart rate 70 /min Chacorta House DO Work Phone: [facility] 03-24-2025 10:03-0400 Respiratory rate 19 /min Chacorta House DO Work Phone: [facility] 03-24-2025 10:03-0400 SaO2% (BldA) [Mass fraction] 97 % Chacorta House DO Work Phone: [facility] 03-24-2025 10:03-0400 Systolic blood pressure 152 mm[Hg] Chacorta House DO Work Phone: [facility] 11-05-2024 15:03-0500 Body height 165.1 cm [facility] 11-05-2024 15:03-0500 Body mass index (BMI) [Ratio] 35 kg/m2 [facility] 11-05-2024 15:03-0500 Body temperature 98.6 [degF] [facility] 11-05-2024 15:03-0500 Body weight 95.48 kg [facility] 11-05-2024 15:03-0500 Diastolic blood pressure 82 mm[Hg] [facility] 11-05-2024 15:03-0500 Heart rate 97 /min [facility] 11-05-2024 15:03-0500 Respiratory rate 16 /min [facility] 11-05-2024 15:03-0500 SaO2% (BldA) [Mass fraction] 95 % [facility] 11-05-2024 15:03-0500 Systolic blood pressure 138 mm[Hg] [facility] 08-15-2023 13:35-0500 Body height 165.1 cm Frances Perez Other [facility] 08-15-2023 13:35-0500 Body mass index (BMI) [Ratio] 32.58 kg/m2 Frances Perez Other [facility] Other 08-15-2023 13:35-0500 Body temperature 98.3 [degF] Frances Perez Other [facility] Other 08-15-2023 13:35-0500 Body weight 88.81 kg Frances Perez Other [facility] Other 08-15-2023 13:35-0500 Diastolic blood pressure 85 mm[Hg] Frances Perez Other [facility] Other 08-15-2023 13:35-0500 Respiratory rate 18 /min Frances Perez Other [facility] Other 08-15-2023 13:35-0500 SaO2% (BldA) [Mass fraction] 99 % Frances Perez Other [facility] Other 08-15-2023 13:35-0500 Systolic blood pressure 144 mm[Hg] Frances Perez Other [facility] Other Encounters Encounter Date Encounter Type Care Provider Facility Start: 03-24-2025 End: 03-24-2025 ambulatory Chacorta Reveles DO Work Phone: [facility] Work Phone: Start: 03-24-2025 End: 03-24-2025 Patient encounter procedure Susan Hussein [employer] [facility] Work Phone: Start: 02-25-2025 ambulatory CHACORTA REVELES Facilit y:[facility] Start: 02-24-2025 ambulatory DO CHACORTA REVELES Faci lity:[facility] Start: 11-05-2024 End: 11-05-2024 ambulatory [facility] Work Phone: Start: 11-05-2024 End: 11-05-2024 Patient encounter procedure [facility] Work Phone: Start: 06-02-2024 End: 06-02-2024 ambulatory CHACORTA REVELES Facility:[facility] Start: 11-11-2023 End: 11-11-2023 ambulatory SELF Facility:[facility] Start: 08-15-2023 End: 08-15-2023 ambulatory Frances Perez Facility:[facility] Start: 08-15-2023 End: 08-15-2023 Patient encounter procedure [employer]PER[employer] Frances Perez Work Phone: [facility] Work Phone: Start: 08-15-2023 End: 08-15-2023 ambulatory Frances Perez Other [facility] Other Start: 08-15-2023 Office outpatient vi sit 15 minutes Frances Perez [facility] Start: 12-31-2022 End: 01-01-[address] CHACORTA REVELES Facility: Start: 07-22-2018 End: 07-22-2018 Patient encounter procedure Gregory Matos [place] Start: 07-14-2018 End: 07-15-2018 Patient encounter procedure Gregory Matos [place] Procedures Date Procedure Procedure Detail Performing Clinician Start: 08-15-2023 Plain X-ray of left hand [employer] SUPER[employer]OR-C Frances Perez Work Phone: Payers Date Payer Category Payer Self-pay 2018 Unknown [id number] 1970 Unknown [id number] 2.16.84 [id number] 1970 Unknown [id number] 2.16.84 [id number] 1972 Unknown [id number] 2.16.84 [id number] 1972 Unknown [id number] 2.16.8 [id number] 1972 Unknown [id number] 2.16.8 [id number] 1972 Unknown [id number] 2.16.8 [id number] 1959 Unknown [id number] Unknown Bhargavi BEDOLLA/[place] [id number] Unknown [id number] 2.16.8 [id number] Social History Date Type Detail Facility Tobacco smoking status NHIS Unknown if ever smoked [facility] Other Start: 1970 Sex Assigned At Female F [facility] Sex Assigned At Sex Assigned At Bir th [facility] Other Start: 11-05-2024 End: 11-05-2024 Tobacco smoking status NHIS Never smoked tobacco (finding) [facility] Start: 11-05-2024 Sex Female (finding) [facility] Medication management note 09-17-2024 Note Date & Type Note Facility 09-17-2024 Note Entered by FELICIANO REVELES DO on September 17, 2024 10:54:03 EST From: CHACORTA REVELES DO To: [id number] Sent: 09/17/2024 10:54:03 EST Subject: Medication Management Submitted: Complete:levothyroxine (levothyroxine 112 mcg (0.112 mg) oral tablet) Signed by CHACORTA REVELES DO 09/17/2024 10:54:00 EST Approved with modifications: levothyroxine (levothyroxine 112 mcg tablet) TAKE 1 TABLET BY MOUTH DAILY Qty: 30 tab(s) Days Supply: 30 Refills: 5 Substitutions Allowed Route To Pharmacy - [id number] From: [id number] To: CHACORTA REVELES DO Sent: September 17, 2024 6:20:18 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 Author Type: Physician Type: Progress Notes Filed: 11/11/2023 16:42 Note Text: [facility] 11/11/2023 Pinky Funez 52 year old female Referring physician or PCP: SELF No primary care provider on file. Referred by * to the [facility] for opinion regarding * . My final recommendations will be communicated by way of shared Medical Record for internal providers or letter via the [employer] for external providers. SUBJECTIVE: HPI: [...] observed, having a Donut from specific bakery. [employer]. Other people shared same Donuts but no one got sick At baseline, she would go for a BM every 3 days, hard stool, no straining. She takes fibers PRN. No concern for dehydration the days before episodes. No family history of colon cancer or IBD Occasional naproxen for headache. From Care everywhere - [facility] Colonoscopy 07/18/2023: Findings: A 5 mm polyp [...] pathology results. Procedure Code(s): --- Professional --- 50424, Colonoscopy, flexible; with removal of tumor(s), polyp(s), or other lesion(s) by snare technique Patient Name:PINKY FUNEZ:1970 (Age: 52)Gender:FTaken:07/18/2023Reported:07/28hysician(s):Samantha Peterson MD ([phone])Copy To: Rec. #:[id number]: #[id number] Final Pathologic Diagnosis Hepatic flexure polyp: Hyperplastic polyp fragments Report Electronically Signed Out nsk/07/28/2023Leonela Aly MD Interpretation performed at [facility], [address] [place] [address], [place] [address], License number: [id number]. Clinical History Screening. Gross Description Received in formalin labeled ARMIN, hepatic flexure polyp is a single pedunculated [...] and submitted in cassette B. (2, ns, [id number], m5) MG mj/07/18/2023R Specimen(s) Received Hepatic flexure polyp Fee Codes(s): 1; 81562 Review Of Systems A 14 point ROS [...] Wt 88.9 k (more content not included)... [facility] Evaluation note 08-15-2023 Note Date & [...] Ganglion cyst home care material was printed [facility] Other Clinical Note 05-31-2021 Note Date & Type Note Facility 05-31-2021 Note Patient Education Ma terials Name: Pinky Funez Current Date: 05/31/2021 07:22:39 [place] : 1970 The following sheet(s) are the Patient Education Leaflets for [facility] Breast Health: Breast Self-Awareness What is [...] breast self-examination (BSE). These experts include the [place] [employer], the [place]. Preventive Services Task Force, and the [place] [employer] Gynec[employer]. Some experts [...] This means they are not cancer. ? 5944-2205 [employer]. [address] [place] [address]. All rights reserved. This information is not intended as a substitute for professional medical care. Always follow your healthcare professional's instructions. [facility] Evaluation note Note Date & Type Note Facility Evaluation note No assessment information availa [facility] Work Phone: History general Narrative - Reported Note Date & Type Note Facility History general Narrative - Reported Type Medical History Hypothyroid Surgical History hysterectomy Hospitalization History child Hospitalization History see above [facility] Other Reason for referral (narrative) Note Date & Type Note Facility Reason for referral (narrative) No reason for referral information available [facility] Work Phone: Summary Purpose Family History No Family History Records FoundNo Family History Records FoundNo Family History Records FoundNo Family History Records FoundNo Family History Records FoundNo Family History Records Found Advance Directives Advance Directive Response Recorded Date/ Time Advance Directives No August 6:48pm Advance Directive Response Recorded Date/ Time Advance Directives No August 7:48pm Chief Complaint and Reason for Visit Chief Complaint Admit Date Cough, congestion November 05, 2024 2:27pm Chief Complaint Admit Date sinus congestion March 24, 2025 9:55 am Additional Source Comments INFORMATION SOURCE (unrecogn ized section and content) DATE CREATED AUTHOR 12/12/2018 [facility] DATE CREATED AUTHOR AUTHOR'S ORGANIZ ATION 06/06/2021 [facility] DATE CREATED AUTHOR AUTHOR'S ORGANIZ ATION 01/04/2023 [facility] DATE CREATED AUTHOR AUTHOR'S ORGANIZ ATION 10/17/2023 [facility] DATE CREATED AUTHOR AUTHOR'S ORGANIZ ATION 11/11/2023 [facility] DATE CREATED AUTHOR AUTHOR'S ORGANIZ ATION 03/21/2025 [facility] Care Teams (unrecognized sec tion and content) [...] November 05, 2024 End: November 05, 2024 Team Status: Inactive Member Role Status Dates Chacorta Reveles DO Primary Care Provider Active Start: March 24, 2025 End: March 24, 2025 Susan Hussein APRN Attending Provider Active Start: March 24, 2025 End: March 24, 2025 Goals (unrecognized section and content) Goals may be documented in a n alternate sectionNo InformationGoals may be documented in an alternate sectionGoals may be documented in an alternate section [...] BE BASED ON THE PRIMARY CLINICAL RECORDS. [employer] [facility]. provides no warranty or guarantee of the accuracy or completeness of information in this document.
== END 2025-03-25 13:09 | disposition home or self-care (01) ==
LOC: MAMMO 13:08
PROVIDERS: PCP Family Medicine; Visit Provider Family Medicine
DX: Z12.31 Encounter for screening mammogram for malignant neoplasm of breast (principal); Z80.8 Family history of malignant neoplasm of other organs or systems
CPT/HCPCS: 77063; 77067